=== PATIENT | female | born 1935 | race African-American/Black ===

== ENCOUNTER 2019-07-11 21:55 | Inpatient (IN) | payer OTHER ==
[~2019-07-11] VITALS: Ht 160 cm; Wt 130.7 kg
[2019-07-11] MEDS ORDERED: FUROSEMIDE 100MG/10ML VIAL IVP ONE (22:30)
[2019-07-11 22:53] LABS: BG BASE EXCESS -1.4 mmol/L (-2.0-2.0); BG CARBOXYHEMOGLOBIN 0.3 % (0.5-1.5); BG DEOXYHEMOGLOBIN 59.8 % (0.0-5.0); BG FRACTION INSPIRED OXYGEN 36; BG HCO3 ACT 24.5 mmol/L (22.0-26.0); BG METHEMOGLOBIN 0.3 % (0.0-1.5); BG OXYGEN SATURATION 39.8 % (92.0-98.5); BG OXYHEMOGLOBIN 39.6 % (94.0-97.0); BG PH 7.345 (7.350-7.450); BG PO2 < 30.3 mmHg (75.0-100.0); BG SAMPLE SITE RIGHT RADIAL; BG TOTAL HEMOGLOBIN 12.3 g/dL (12.0-18.0); BG VENT MODE NASAL CANNULA
[2019-07-11 23:13] LABS: BASOPHILS % 0.5 % (0.0-2.0); HEMATOCRIT. 38.4 % (36.0-48.0); HEMOGLOBIN. 12.5 g/dL (12.0-16.0); LYMPHOCYTES % 15.7 % (20.0-50.0); MEAN CORPUSCULAR HEMOGLOBIN 30.7 pg (28.0-32.0); MEAN CORPUSCULAR VOLUME 93.9 fL (81.0-99.0); MEAN PLATELET VOLUME 8.7 fl (7.4-10.4); MONOCYTES % 7.6 % (2.0-8.0); NEUTROPHILS % 75.2 % (40.0-76.0); PLATELET 268 x1000/uL (130-400); RED BLOOD CELL COUNT 4.09 mill/uL (4.2-5.4); RED CELL DISTRIBUTION WIDTH 15.8 % (11.6-14.6)
[2019-07-11 23:19] LABS: CHLORIDE 105 mEq/L (98-107)
[2019-07-12] VITALS (8 sets, daily range): BP systolic 123–156; BP diastolic 53–78
[2019-07-12] MEDS ORDERED: IOHEXOL-350 100 ML BOTTLE ONE (05:17)
[2019-07-12] MEDS ORDERED: IPRATROPIUM/ALBUTEROL 0.5-3(2.5)MG/3ML NEB HHN PRN (10:30)
[2019-07-12] MEDS ORDERED: NPH,100V SQ (10:48)
[2019-07-12 10:50] LABS: BG BASE EXCESS 3.8 mmol/L (-2.0-2.0); BG CARBOXYHEMOGLOBIN 0.1 % (0.5-1.5); BG DEOXYHEMOGLOBIN 7.7 % (0.0-5.0); BG FRACTION INSPIRED OXYGEN 32; BG METHEMOGLOBIN 0.4 % (0.0-1.5); BG OXYGEN SATURATION 92.3 % (92.0-98.5); BG OXYHEMOGLOBIN 91.8 % (94.0-97.0); BG PH 7.453 (7.350-7.450); BG PO2 60.4 mmHg (75.0-100.0); BG SAMPLE SITE RIGHT RADIAL; BG TOTAL HEMOGLOBIN 12.7 g/dL (12.0-18.0); BG VENT MODE NASAL CANNULA
[2019-07-12] MEDS ORDERED: HEPARIN 25,000 UNITS PREMIX 500 ML IV PRN (12:00)
[2019-07-12 13:03] LABS: D-DIMER 8.29 mg/L FEU (<0.50); PROTHROMBIN TIME 10.8 sec (9.6-11.0)
[2019-07-12] MEDS: ENOXAPARIN 150MG/ML SYR SUBCUT SCH ×2 (13:20→21:32)
[2019-07-12] MEDS ORDERED: ONDANSETRON HCL 4MG/2ML INJ IV PRN ×2 (13:30→21:15)
[2019-07-12] MEDS ORDERED: CLONIDINE 0.1MG TABLET PO PRN ×2 (13:30→21:15)
[2019-07-12] MEDS ORDERED: MAGNESIUM/ALUMINUM HYDROXIDE/SIMETHICONE 30ML UDC PO PRN ×2 (13:30→21:15)
[2019-07-12] MEDS ORDERED: IPRATROPIUM/ALBUTEROL 0.5-3(2.5)MG/3ML NEB NEB PRN ×2 (13:30→21:15)
[2019-07-12] MEDS ORDERED: ACETAMINOPHEN 325MG TABLET PO PRN ×2 (13:30→21:15)
[2019-07-12] MEDS ORDERED: DIPHENHYDRAMINE 50MG/ML VIAL IV PRN ×2 (13:30→21:15)
[2019-07-12] MEDS ORDERED: LORAZEPAM 0.5MG TABLET PO PRN (13:30)
[2019-07-12] MEDS: SODIUM CHLORIDE 0.9% INJ 3ML FLUSH IVF SCH ×3 (13:32→21:33)
[2019-07-12] MEDS: IPRATROPIUM/ALBUTEROL 0.5-3(2.5)MG/3ML NEB HHN SCH ×2 (13:47→20:48)
[2019-07-12] MEDS: AMLODIPINE 2.5MG TABLET PO SCH ×2 (15:10→21:31)
[2019-07-12] MEDS ORDERED: DEXTROSE 50% WATER 50ML SYRINGE IV PRN (20:45)
[2019-07-12] MEDS: BUDESONIDE 0.5MG/2ML NEB HHN SCH (20:48)
[2019-07-12] MEDS: BLOOD SUGAR DIAGNOSTIC STRIP TEST SCH (21:32)
[2019-07-12] MEDS: INSULIN LISPRO 100 UNITS/ML SUBCUT SCH (21:47)
[2019-07-13] VITALS (12 sets, daily range): BP systolic 115–170; BP diastolic 44–74
[2019-07-13] MEDS: IPRATROPIUM/ALBUTEROL 0.5-3(2.5)MG/3ML NEB HHN SCH ×3 (01:47→13:50)
[2019-07-13] MEDS: SODIUM CHLORIDE 0.9% INJ 3ML FLUSH IVF SCH ×2 (06:09→13:51)
[2019-07-13 08:14] LABS: BASOPHILS % 0.5 % (0.0-2.0); EOSINOPHILS % 1.4 % (0.0-5.0); HEMATOCRIT. 33.6 % (36.0-48.0); LYMPHOCYTES % 14.6 % (20.0-50.0); MEAN CORPUSCULAR VOLUME 92.1 fL (81.0-99.0); MEAN PLATELET VOLUME 8.8 fl (7.4-10.4); MONOCYTES % 8.2 % (2.0-8.0); NEUTROPHILS % 75.3 % (40.0-76.0); PLATELET 258 x1000/uL (130-400); RED BLOOD CELL COUNT 3.65 mill/uL (4.2-5.4); RED CELL DISTRIBUTION WIDTH 15.1 % (11.6-14.6)
[2019-07-13 08:17] LABS: CREATINE KINASE MB FRACTION 1.3 ng/mL (0.5-3.6)
[2019-07-13] MEDS: INSULIN LISPRO 100 UNITS/ML SUBCUT SCH ×3 (08:28→18:16)
[2019-07-13] MEDS: BLOOD SUGAR DIAGNOSTIC STRIP TEST SCH ×3 (08:28→17:43)
[2019-07-13] MEDS: BUDESONIDE 0.5MG/2ML NEB HHN SCH ×2 (08:40→13:50)
[2019-07-13] MEDS: ENOXAPARIN 150MG/ML SYR SUBCUT SCH (08:40)
[2019-07-13] MEDS: AMLODIPINE 2.5MG TABLET PO SCH (08:44)
[2019-07-13] MEDS ORDERED: POTASSIUM CHLORIDE 20MEQ TABLET SR PO NR (16:00)
== END 2019-07-13 21:05 | disposition short-term general hospital (02) | DRG 175 ==
LOC: ER 21:55 → 5EST 07-12 06:20 → ENRESERV 07-12 08:08
PROVIDERS: ADMIT Internal Medicine; ATTEND Internal Medicine
DX: I26.99 Other pulmonary embolism without acute cor pulmonale (principal); J96.01 Acute respiratory failure with hypoxia; I50.43 Acute on chronic combined systolic (congestive) and diastolic (congestive) heart failure; E46 Unspecified protein-calorie malnutrition; J44.1 Chronic obstructive pulmonary disease with (acute) exacerbation; D68.69 Other thrombophilia; Z68.43 Body mass index [BMI] 50.0-59.9, adult; I11.0 Hypertensive heart disease with heart failure; E87.6 Hypokalemia; E66.01 Morbid (severe) obesity due to excess calories; E11.9 Type 2 diabetes mellitus without complications; D72.829 Elevated white blood cell count, unspecified; E27.8 Other specified disorders of adrenal gland; E87.5 Hyperkalemia; G47.33 Obstructive sleep apnea (adult) (pediatric); N28.9 Disorder of kidney and ureter, unspecified; Z83.3 Family history of diabetes mellitus; Z87.891 Personal history of nicotine dependence; Z79.899 Other long term (current) drug therapy
CPT/HCPCS: 36415; 36600; 71045; 71275; 80048; 80061; 82375; 82550; 82553; 82805; 82962; 83735; 83880; 84443; 84484; 85379; 85384; 87493; 93005; 93306; 93970; J1650; J1815; J1940; J7620; J7626; Q9967

== ENCOUNTER 2019-12-16 05:30 | Emergency (ER) | payer OTHER ==
[~2019-12-16] VITALS: Ht 167.6 cm; Wt 127.0 kg
[~2019-12-16 05:30] MED LIST: NPH,100V SQ
[2019-12-16] MEDS ORDERED: SODIUM CHLORIDE 0.9% 1,000 ML IV ONE (05:55)
[2019-12-16 06:17] LABS: BASOPHILS % 0.5 % (0.0-2.0); HEMATOCRIT. 34.8 % (36.0-48.0); HEMOGLOBIN. 11.6 g/dL (12.0-16.0); LYMPHOCYTES % 19.6 % (20.0-50.0); MEAN CORPUSCULAR HEMOGLOBIN 30.2 pg (28.0-32.0); MEAN PLATELET VOLUME 8.2 fl (7.4-10.4); MONOCYTES % 5.5 % (2.0-8.0); NEUTROPHILS % 72.4 % (40.0-76.0); PLATELET 310 x1000/uL (130-400); RED BLOOD CELL COUNT 3.83 mill/uL (4.2-5.4); RED CELL DISTRIBUTION WIDTH 15.9 % (11.6-14.6)
[2019-12-16 06:23] LABS: CHLORIDE 102 mEq/L (98-107)
[2019-12-16 06:29] LABS: BG BASE EXCESS 1.1 mmol/L (-2.0-2.0); BG CARBOXYHEMOGLOBIN 0.2 % (0.5-1.5); BG DEOXYHEMOGLOBIN 8.9 % (0.0-5.0); BG FRACTION INSPIRED OXYGEN 21; BG HCO3 ACT 26.7 mmol/L (22.0-26.0); BG METHEMOGLOBIN 0.1 % (0.0-1.5); BG OXYGEN SATURATION 91.1 % (92.0-98.5); BG OXYHEMOGLOBIN 90.8 % (94.0-97.0); BG PCO2 46.5 mmHg (35.0-45.0); BG PH 7.377 (7.350-7.450); BG PO2 58.5 mmHg (75.0-100.0); BG SAMPLE SITE RIGHT RADIAL; BG VENT MODE ROOM AIR
[2019-12-16 06:50] LABS: CLARITY URINE TURBID (CLEAR); COLOR URINE YELLOW (YELLOW); KETONES URINE NEGATIVE (NEGATIVE); LEUKOCYTE ESTERASE URINE 3+ (NEGATIVE); NITRITE URINE POSITIVE (NEGATIVE); OCCULT BLOOD URINE TRACE (NEGATIVE); PROTEIN URINE NEGATIVE (NEGATIVE); SPECIFIC GRAVITY URINE 1.011 (1.005-1.030)
[2019-12-16] MEDS ORDERED: CEFTRIAXONE 1 G PREMIX 50 ML IV ONE (07:15)
[2019-12-16] MEDS ORDERED: FUROSEMIDE 40MG/4ML VIAL IVP ONE (07:30)
[2019-12-16 10:25] VITALS: BP 140/75
== END 2019-12-16 11:03 ==
LOC: ER 05:40
DX: I11.0 Hypertensive heart disease with heart failure (principal); I50.9 Heart failure, unspecified; N39.0 Urinary tract infection, site not specified; R09.02 Hypoxemia; R41.82 Altered mental status, unspecified; J44.9 Chronic obstructive pulmonary disease, unspecified; E11.9 Type 2 diabetes mellitus without complications; E78.00 Pure hypercholesterolemia, unspecified; Z79.4 Long term (current) use of insulin
CPT/HCPCS: 36415; 36600; 70450; 71045; 80053; 81003; 82140; 82375; 82805; 82962; 83605; 84484; 85025; 87077; 87086; 87186; 93005; 96361; 96374; 96375; 99285; J0696; J1940; J7030; 96365

== ENCOUNTER 2021-01-01 17:13 | Emergency (ER) | payer OTHER ==
[~2021-01-01] VITALS: Ht 167.6 cm; Wt 95.0 kg
[~2021-01-01 17:13] MED LIST changes: +KEPP250 PO
[2021-01-01 18:21] LABS: BASOPHILS % 0.4 % (0.0-2.0); EOSINOPHILS % 1.7 % (0.0-5.0); HEMATOCRIT. 39.3 % (36.0-48.0); HEMOGLOBIN. 12.4 g/dL (12.0-16.0); LYMPHOCYTES % 22.2 % (20.0-50.0); MEAN CORPUSCULAR HEMOGLOBIN 29.8 pg (28.0-32.0); MEAN CORPUSCULAR VOLUME 94.3 fL (81.0-99.0); MEAN PLATELET VOLUME 8.6 fl (7.4-10.4); MONOCYTES % 7.1 % (2.0-8.0); NEUTROPHILS % 68.6 % (40.0-76.0); PLATELET 288 x1000/uL (130-400); RED BLOOD CELL COUNT 4.17 mill/uL (4.2-5.4)
[2021-01-01 18:29] LABS: CHLORIDE 105 mEq/L (98-107)
[2021-01-01 18:35] LABS: ETHANOL BLOOD < 10 mg/dL
[2021-01-01 20:24] LABS: PROTHROMBIN TIME 10.9 sec (9.6-11.0)
[2021-01-01 20:25] LABS: CLARITY URINE CLEAR (CLEAR); COLOR URINE YELLOW (YELLOW); KETONES URINE NEGATIVE (NEGATIVE); LEUKOCYTE ESTERASE URINE NEGATIVE (NEGATIVE); NITRITE URINE NEGATIVE (NEGATIVE); OCCULT BLOOD URINE NEGATIVE (NEGATIVE); PROTEIN URINE TRACE (NEGATIVE); SPECIFIC GRAVITY URINE 1.008 (1.005-1.030); UROBILINOGEN URINE 0.2 E.U./dL (0.2-1.0)
[2021-01-01 20:33] LABS: *AMPHETAMINES SCREEN URINE NEGATIVE (NEGATIVE)
[2021-01-01 20:34] LABS: *BARBITURATES SCREEN URINE NEGATIVE (NEGATIVE); *BENZODIAZEPINES SCREEN URINE NEGATIVE (NEGATIVE); *COCAINE SCREEN URINE NEGATIVE (NEGATIVE); CANNABINOID URINE SCREEN NEGATIVE (NEGATIVE); METHADONE URINE SCREEN NEGATIVE (NEGATIVE); OPIATES URINE SCREEN NEGATIVE (NEGATIVE); PHENCYCLIDINE URINE SCREEN NEGATIVE (NEGATIVE)
[2021-01-01 21:43] VITALS: BP 107/67
== END 2021-01-01 22:47 | disposition short-term general hospital (02) ==
LOC: ER 17:13
DX: R55 Syncope and collapse (principal); G40.909 Epilepsy, unspecified, not intractable, without status epilepticus
CPT/HCPCS: 36415; 80053; 80305; 80320; 81003; 82962; 84484; 85025; 99284; G0480

== ENCOUNTER 2021-05-27 08:47 | Emergency (ER) | payer OTHER ==
[~2021-05-27] VITALS: Ht 167.6 cm; Wt 136.0 kg
[2021-05-27] MEDS ORDERED: LEVETIRACETAM 1000MG PREMIX 100 ML IV ONE (09:30)
[2021-05-27 09:47] LABS: BASOPHILS % 0.2 % (0.0-2.0); EOSINOPHILS % 0.5 % (0.0-5.0); HEMATOCRIT. 38.8 % (36.0-48.0); HEMOGLOBIN. 12.6 g/dL (12.0-16.0); LYMPHOCYTES % 14.1 % (20.0-50.0); MEAN CORPUSCULAR HEMOGLOBIN 29.9 pg (28.0-32.0); MEAN CORPUSCULAR VOLUME 91.8 fL (81.0-99.0); MEAN PLATELET VOLUME 8.6 fl (7.4-10.4); MONOCYTES % 5.7 % (2.0-8.0); NEUTROPHILS % 79.5 % (40.0-76.0); PLATELET 280 x1000/uL (130-400); RED BLOOD CELL COUNT 4.22 mill/uL (4.2-5.4); RED CELL DISTRIBUTION WIDTH 16.3 % (11.6-14.6)
[2021-05-27 10:13] LABS: CLARITY URINE CLEAR (CLEAR); COLOR URINE YELLOW (YELLOW); KETONES URINE TRACE (NEGATIVE); LEUKOCYTE ESTERASE URINE 2+ (NEGATIVE); NITRITE URINE POSITIVE (NEGATIVE); OCCULT BLOOD URINE TRACE (NEGATIVE); PROTEIN URINE 2+ (NEGATIVE); SPECIFIC GRAVITY URINE 1.011 (1.005-1.030); UROBILINOGEN URINE 0.2 E.U./dL (0.2-1.0)
[2021-05-27] MEDS ORDERED: CEFTRIAXONE 1 G PREMIX 50 ML IV ONE (10:45)
[2021-05-27 10:47] LABS: CHLORIDE 106 mEq/L (98-107)
[2021-05-27] MEDS ORDERED: SODIUM CHLORIDE 0.9% 500 ML IV ONE (11:30)
[2021-05-27] MEDS ORDERED: DIVALPROEX SODIUM 500MG DR TABLET PO ONE (12:15)
[2021-05-27 13:10] VITALS: BP 171/77
== END 2021-05-27 13:58 | disposition short-term general hospital (02) ==
LOC: ER 08:47 → EDBEDREQ 10:37 → ER 13:58 → CANBEDREQ 14:44
DX: R56.9 Unspecified convulsions (principal); N39.0 Urinary tract infection, site not specified; I10 Essential (primary) hypertension; E86.0 Dehydration; Z79.4 Long term (current) use of insulin; Z79.899 Other long term (current) drug therapy
CPT/HCPCS: 36415; 71045; 80053; 80165; 81003; 85025; 87077; 87086; 87186; 93005; 96361; 96365; 96367; 99291; J0696; J1953; J7040

== ENCOUNTER 2021-07-21 05:01 | Inpatient (IN) | payer OTHER ==
[~2021-07-21] VITALS: Ht 167.6 cm; Wt 144.2 kg
[2021-07-21 05:37] LABS: BG BASE EXCESS 1.8 mmol/L (-2.0-2.0); BG CARBOXYHEMOGLOBIN 0.3 % (0.5-1.5); BG DEOXYHEMOGLOBIN 0.9 % (0.0-5.0); BG FRACTION INSPIRED OXYGEN 100; BG HCO3 ACT 27.9 mmol/L (22.0-26.0); BG METHEMOGLOBIN 0.4 % (0.0-1.5); BG OXYGEN SATURATION 99.1 % (92.0-98.5); BG OXYHEMOGLOBIN 98.4 % (94.0-97.0); BG PCO2 50.8 mmHg (35.0-45.0); BG PH 7.358 (7.350-7.450); BG PO2 257.5 mmHg (75.0-100.0); BG SAMPLE SITE RIGHT RADIAL; BG TOTAL HEMOGLOBIN 11.3 g/dL (12.0-18.0); BG VENT MODE MASK - NRB
[2021-07-21 05:57] LABS: BASOPHILS % 0.4 % (0.0-2.0); EOSINOPHILS % 0.7 % (0.0-5.0); HEMATOCRIT. 33.7 % (36.0-48.0); LYMPHOCYTES % 12.3 % (20.0-50.0); MEAN CORPUSCULAR HEMOGLOBIN 29.6 pg (28.0-32.0); MEAN CORPUSCULAR VOLUME 90.9 fL (81.0-99.0); MEAN PLATELET VOLUME 8.1 fl (7.4-10.4); MONOCYTES % 6.5 % (2.0-8.0); NEUTROPHILS % 80.1 % (40.0-76.0); PLATELET 282 x1000/uL (130-400)
[2021-07-21 06:02] LABS: CHLORIDE 103 mEq/L (98-107)
[2021-07-21 06:07] LABS: ETHANOL BLOOD < 10 mg/dL
[2021-07-21 06:30] LABS: CLARITY URINE CLEAR (CLEAR); COLOR URINE YELLOW (YELLOW); KETONES URINE NEGATIVE (NEGATIVE); LEUKOCYTE ESTERASE URINE 2+ (NEGATIVE); NITRITE URINE POSITIVE (NEGATIVE); OCCULT BLOOD URINE NEGATIVE (NEGATIVE); PH URINE 6.5 (4.5-8.0); PROTEIN URINE 1+ (NEGATIVE); UROBILINOGEN URINE 0.2 E.U./dL (0.2-1.0)
[2021-07-21 06:39] LABS: *AMPHETAMINES SCREEN URINE NEGATIVE (NEGATIVE); *BARBITURATES SCREEN URINE NEGATIVE (NEGATIVE)
[2021-07-21 06:41] LABS: *BENZODIAZEPINES SCREEN URINE NEGATIVE (NEGATIVE); *COCAINE SCREEN URINE NEGATIVE (NEGATIVE); METHADONE URINE SCREEN NEGATIVE (NEGATIVE); OPIATES URINE SCREEN NEGATIVE (NEGATIVE)
[2021-07-21 06:42] LABS: CANNABINOID URINE SCREEN NEGATIVE (NEGATIVE); PHENCYCLIDINE URINE SCREEN NEGATIVE (NEGATIVE)
[2021-07-21 06:55] LABS: CARBAMAZEPINE < 0.5 ug/mL (4-12); PHENOBARBITAL < 2.1 ug/mL (15.0-40.0)
[2021-07-21] MEDS ORDERED: CEFTRIAXONE 1 G PREMIX 50 ML IV ONE (08:45)
[2021-07-21] MEDS ORDERED: HYDRALAZINE 20MG/ML VIAL IV ONE (10:00)
[2021-07-21] MEDS ORDERED: LORAZEPAM 2MG/ML CPJ IM STA (10:05)
[2021-07-21] MEDS ORDERED: LEVETIRACETAM 1000MG PREMIX 100 ML IV ONE (10:15)
[2021-07-21] MEDS ORDERED: DOCUSATE SODIUM 100MG CAPSULE PO PRN (11:00)
[2021-07-21] MEDS ORDERED: ACETAMINOPHEN 325MG TABLET PO PRN ×2 (11:00)
[2021-07-21] MEDS ORDERED: IPRATROPIUM/ALBUTEROL 0.5-3(2.5)MG/3ML NEB NEB PRN (11:00)
[2021-07-21] MEDS ORDERED: MAGNESIUM/ALUMINUM HYDROXIDE/SIMETHICONE 30ML UDC PO PRN (11:00)
[2021-07-21] MEDS ORDERED: NITROGLYCERIN 0.4MG TABLET SL SL PRN (11:00)
[2021-07-21] MEDS: AMLODIPINE 10MG TABLET PO SCH (11:00)
[2021-07-21] MEDS ORDERED: ZOLPIDEM TARTRATE 5MG TABLET PO PRN (11:00)
[2021-07-21] MEDS ORDERED: KETOROLAC 15MG/ML VIAL IV PRN (11:00)
[2021-07-21] MEDS ORDERED: LEVOFLOXACIN 500MG PREMIX 100 ML IV NR (12:00)
[2021-07-21 12:10] LABS: T4 FREE 1.18 ng/dL (0.76-1.46)
[2021-07-21] MEDS ORDERED: PHENYTOIN SODIUM 1,000 MG in SODIUM CHLORIDE 0.9% 100 ML IV NR (12:30)
[2021-07-21] MEDS: ENOXAPARIN 30MG/0.3ML SYR SUBCUT SCH ×2 (12:38→23:57)
[2021-07-21 13:27] LABS: CREATINE KINASE MB FRACTION 1.9 ng/mL (0.5-3.6)
[2021-07-21 14:25] LABS: FOLIC ACID (FOLATE) SERUM 16.6 ng/mL (>5.38)
[2021-07-21] MEDS ORDERED: SODIUM CHLORIDE 0.9% 1000ML BAG (SEPSIS BOLUS) IV NR (15:15)
[2021-07-21] MEDS ORDERED: CLONIDINE HCL 0.2MG/24HR PATCH TD NR (15:30)
[2021-07-21] MEDS: NITROGLYCERIN OINT 1GM/INCH UDPKT TD SCH ×2 (17:43→22:23)
[2021-07-21] MEDS: LEVETIRACETAM 500MG PREMIX 100 ML IV SCH (17:45)
[2021-07-21 20:00] VITALS: BP 150/57
[2021-07-21] MEDS ORDERED: VALPROIC ACID 250MG CAPSULE PO SCH (22:00)
[2021-07-21] MEDS: FAMOTIDINE 20MG TABLET PO SCH (22:22)
[2021-07-21] MEDS: ASCORBIC ACID 500 MG TABLET PO SCH (22:22)
[2021-07-21] MEDS: LISINOPRIL 20MG TABLET PO SCH (22:23)
[2021-07-22] VITALS: BP 150/66
[2021-07-22 02:09] LABS: CREATINE KINASE MB FRACTION 2.4 ng/mL (0.5-3.6)
[2021-07-22 04:00] VITALS: BP 148/66
[2021-07-22] MEDS: LEVETIRACETAM 500MG PREMIX 100 ML IV SCH ×2 (05:59→18:55)
[2021-07-22] MEDS: VALPROATE SODIUM 250MG/5ML UDC PO SCH ×3 (06:09→21:55)
[2021-07-22] MEDS: NITROGLYCERIN OINT 1GM/INCH UDPKT TD SCH ×2 (06:10→15:09)
[2021-07-22 07:18] LABS: BASOPHILS % 0.5 % (0.0-2.0); EOSINOPHILS % 0.7 % (0.0-5.0); HEMATOCRIT. 29.7 % (36.0-48.0); HEMOGLOBIN. 9.6 g/dL (12.0-16.0); LYMPHOCYTES % 15.1 % (20.0-50.0); MEAN CORPUSCULAR HEMOGLOBIN 29.5 pg (28.0-32.0); MEAN CORPUSCULAR VOLUME 91.4 fL (81.0-99.0); MEAN PLATELET VOLUME 8.3 fl (7.4-10.4); MONOCYTES % 11.4 % (2.0-8.0); NEUTROPHILS % 72.3 % (40.0-76.0); PLATELET 239 x1000/uL (130-400); RED BLOOD CELL COUNT 3.24 mill/uL (4.2-5.4)
[2021-07-22 08:00] VITALS: BP 142/44
[2021-07-22 08:29] LABS: CHLORIDE 105 mEq/L (98-107)
[2021-07-22 08:40] LABS: PHOSPHORUS 4.4 mg/dL (2.5-4.9)
[2021-07-22] MEDS: ASPIRIN 325MG EC TABLET PO SCH (10:07)
[2021-07-22] MEDS: ZINC SULFATE 220 MG ( 50 ) CAPSULE PO SCH (10:07)
[2021-07-22] MEDS: CHOLECALCIFEROL (D3) 1000 UNIT TABLET PO SCH (10:07)
[2021-07-22] MEDS: AMLODIPINE 10MG TABLET PO SCH (10:08)
[2021-07-22] MEDS: ASCORBIC ACID 500 MG TABLET PO SCH ×2 (10:08→21:51)
[2021-07-22] MEDS: LISINOPRIL 20MG TABLET PO SCH ×2 (10:08→21:50)
[2021-07-22 12:00] VITALS: BP 135/55
[2021-07-22] MEDS: IPRATROPIUM/ALBUTEROL 0.5-3(2.5)MG/3ML NEB HHN SCH ×2 (12:05→20:46)
[2021-07-22] MEDS: BENZONATATE 100MG CAPSULE PO SCH ×2 (15:03→21:51)
[2021-07-22] MEDS: ENOXAPARIN 30MG/0.3ML SYR SUBCUT SCH ×2 (15:05→23:02)
[2021-07-22] MEDS: LEVOFLOXACIN 250MG PREMIX 50 ML IV SCH (15:05)
[2021-07-22 16:00] VITALS: BP 130/60
[2021-07-22 20:00] VITALS: BP 121/51
[2021-07-22] MEDS: PHENYTOIN SODIUM EXTENDED 100MG CAPSULE PO SCH (21:50)
[2021-07-22] MEDS: FAMOTIDINE 20MG TABLET PO SCH (21:51)
[2021-07-22] MEDS: GUAIFENESIN 600MG ER TABLET PO SCH (21:51)
[2021-07-22] MEDS: GUAIFENESIN 200MG/10ML SUGAR FREE UDC PO PRN (23:00)
[2021-07-23] VITALS: BP 119/51
[2021-07-23] MEDS: IPRATROPIUM/ALBUTEROL 0.5-3(2.5)MG/3ML NEB HHN SCH ×4 (00:33→20:48)
[2021-07-23 04:00] VITALS: BP 146/54
[2021-07-23] MEDS: BENZONATATE 100MG CAPSULE PO SCH ×3 (05:23→23:00)
[2021-07-23] MEDS: NITROGLYCERIN OINT 1GM/INCH UDPKT TD SCH ×4 (05:23→23:00)
[2021-07-23] MEDS: VALPROATE SODIUM 250MG/5ML UDC PO SCH ×3 (05:23→23:00)
[2021-07-23] MEDS: LEVETIRACETAM 500MG PREMIX 100 ML IV SCH ×2 (05:24→20:48)
[2021-07-23 08:00] VITALS: BP 130/68
[2021-07-23] MEDS: GUAIFENESIN 200MG/10ML SUGAR FREE UDC PO PRN (10:32)
[2021-07-23] MEDS: ASPIRIN 325MG EC TABLET PO SCH (10:34)
[2021-07-23] MEDS: ZINC SULFATE 220 MG ( 50 ) CAPSULE PO SCH (10:35)
[2021-07-23] MEDS: LISINOPRIL 20MG TABLET PO SCH ×2 (10:35→20:49)
[2021-07-23] MEDS: GUAIFENESIN 600MG ER TABLET PO SCH ×2 (10:35→20:49)
[2021-07-23] MEDS: AMLODIPINE 10MG TABLET PO SCH (10:35)
[2021-07-23] MEDS: CHOLECALCIFEROL (D3) 1000 UNIT TABLET PO SCH (10:35)
[2021-07-23] MEDS: ASCORBIC ACID 500 MG TABLET PO SCH ×2 (10:35→20:48)
[2021-07-23 12:00] VITALS: BP 121/65
[2021-07-23] MEDS: LEVOFLOXACIN 250MG PREMIX 50 ML IV SCH (14:15)
[2021-07-23] MEDS: ENOXAPARIN 30MG/0.3ML SYR SUBCUT SCH ×2 (14:16→23:22)
[2021-07-23] MEDS: FUROSEMIDE 40MG/4ML VIAL IVP SCH (14:47)
[2021-07-23 16:00] VITALS: BP 118/62
[2021-07-23 20:00] VITALS: BP 156/91
[2021-07-23] MEDS: PHENYTOIN SODIUM EXTENDED 100MG CAPSULE PO SCH (20:48)
[2021-07-23] MEDS: MEROPENEM 1,000 MG in SODIUM CHLORIDE 0.9% 100 ML IV SCH (20:48)
[2021-07-23] MEDS: FAMOTIDINE 20MG TABLET PO SCH (20:49)
[2021-07-24] VITALS: BP 181/61
[2021-07-24] MEDS: CLONIDINE 0.1MG TABLET PO PRN (00:44)
[2021-07-24] MEDS: IPRATROPIUM/ALBUTEROL 0.5-3(2.5)MG/3ML NEB HHN SCH ×4 (01:51→20:56)
[2021-07-24 04:00] VITALS: BP 137/44
[2021-07-24] MEDS: NITROGLYCERIN OINT 1GM/INCH UDPKT TD SCH ×3 (07:00→21:00)
[2021-07-24] MEDS: BENZONATATE 100MG CAPSULE PO SCH ×3 (07:00→21:19)
[2021-07-24] MEDS: VALPROATE SODIUM 250MG/5ML UDC PO SCH ×3 (07:00→20:59)
[2021-07-24 08:00] VITALS: BP 159/60
[2021-07-24] MEDS: ASCORBIC ACID 500 MG TABLET PO SCH ×2 (09:35→20:59)
[2021-07-24] MEDS: FUROSEMIDE 40MG/4ML VIAL IVP SCH (09:35)
[2021-07-24] MEDS: MEROPENEM 1,000 MG in SODIUM CHLORIDE 0.9% 100 ML IV SCH ×2 (09:35→20:45)
[2021-07-24] MEDS: ZINC SULFATE 220 MG ( 50 ) CAPSULE PO SCH (09:35)
[2021-07-24] MEDS: LEVETIRACETAM 500MG PREMIX 100 ML IV SCH ×2 (09:35→21:00)
[2021-07-24] MEDS: LISINOPRIL 20MG TABLET PO SCH ×2 (09:36→21:20)
[2021-07-24] MEDS: AMLODIPINE 10MG TABLET PO SCH (09:36)
[2021-07-24] MEDS: CHOLECALCIFEROL (D3) 1000 UNIT TABLET PO SCH (09:36)
[2021-07-24] MEDS: ASPIRIN 325MG EC TABLET PO SCH (09:36)
[2021-07-24] MEDS: GUAIFENESIN 600MG ER TABLET PO SCH ×2 (09:36→20:59)
[2021-07-24 12:00] VITALS: BP 156/68
[2021-07-24] MEDS: ENOXAPARIN 30MG/0.3ML SYR SUBCUT SCH ×2 (12:37→23:08)
[2021-07-24] MEDS: GUAIFENESIN 200MG/10ML SUGAR FREE UDC PO PRN (14:05)
[2021-07-24 16:00] VITALS: BP 158/65
[2021-07-24 20:00] VITALS: BP 118/56
[2021-07-24] MEDS: PHENYTOIN SODIUM EXTENDED 100MG CAPSULE PO SCH (20:59)
[2021-07-24] MEDS: FAMOTIDINE 20MG TABLET PO SCH (21:19)
[2021-07-25] VITALS: BP 131/76
[2021-07-25] MEDS: IPRATROPIUM/ALBUTEROL 0.5-3(2.5)MG/3ML NEB HHN SCH ×4 (01:04→21:20)
[2021-07-25 04:00] VITALS: BP 160/83
[2021-07-25] MEDS: BENZONATATE 100MG CAPSULE PO SCH ×3 (05:16→22:15)
[2021-07-25] MEDS: VALPROATE SODIUM 250MG/5ML UDC PO SCH ×3 (05:16→22:15)
[2021-07-25] MEDS: NITROGLYCERIN OINT 1GM/INCH UDPKT TD SCH ×3 (05:17→22:15)
[2021-07-25] MEDS: CLONIDINE 0.1MG TABLET PO PRN (05:17)
[2021-07-25] MEDS ORDERED: DEXTROSE 50% WATER 50ML SYRINGE IV PRN (07:30)
[2021-07-25 08:00] VITALS: BP 166/64
[2021-07-25] MEDS: ASCORBIC ACID 500 MG TABLET PO SCH ×2 (09:00→22:15)
[2021-07-25] MEDS: ZINC SULFATE 220 MG ( 50 ) CAPSULE PO SCH (09:00)
[2021-07-25] MEDS: FUROSEMIDE 40MG/4ML VIAL IVP SCH (11:08)
[2021-07-25] MEDS: CHOLECALCIFEROL (D3) 1000 UNIT TABLET PO SCH (11:08)
[2021-07-25] MEDS: GUAIFENESIN 600MG ER TABLET PO SCH ×2 (11:08→22:15)
[2021-07-25] MEDS: LEVETIRACETAM 500MG PREMIX 100 ML IV SCH ×2 (11:08→23:51)
[2021-07-25] MEDS: ASPIRIN 325MG EC TABLET PO SCH (11:08)
[2021-07-25] MEDS: AMLODIPINE 10MG TABLET PO SCH (11:09)
[2021-07-25] MEDS: LISINOPRIL 20MG TABLET PO SCH ×2 (11:10→22:16)
[2021-07-25] MEDS: MEROPENEM 1,000 MG in SODIUM CHLORIDE 0.9% 100 ML IV SCH ×3 (11:18→23:24)
[2021-07-25 12:00] VITALS: BP 153/64
[2021-07-25] MEDS: BLOOD SUGAR DIAGNOSTIC STRIP TEST SCH ×3 (12:10→21:00)
[2021-07-25] MEDS: ENOXAPARIN 30MG/0.3ML SYR SUBCUT SCH ×2 (14:09→23:51)
[2021-07-25] MEDS: INSULIN LISPRO 100 UNITS/ML SUBCUT SCH ×3 (14:11→21:00)
[2021-07-25 14:13] LABS: BASOPHILS % 0.2 % (0.0-2.0); CHLORIDE 105 mEq/L (98-107); EOSINOPHILS % 0.3 % (0.0-5.0); HEMATOCRIT. 32.2 % (36.0-48.0); HEMOGLOBIN. 10.2 g/dL (12.0-16.0); LYMPHOCYTES % 14.3 % (20.0-50.0); MEAN CORPUSCULAR HEMOGLOBIN 29.9 pg (28.0-32.0); MEAN PLATELET VOLUME 8.4 fl (7.4-10.4); MONOCYTES % 11.2 % (2.0-8.0); PLATELET 238 x1000/uL (130-400); RED BLOOD CELL COUNT 3.42 mill/uL (4.2-5.4); RED CELL DISTRIBUTION WIDTH 16.6 % (11.6-14.6)
[2021-07-25 16:00] VITALS: BP 158/72
[2021-07-25 20:00] VITALS: BP 143/61
[2021-07-25 20:26] LABS: CHLORIDE 106 mEq/L (98-107)
[2021-07-25] MEDS: PHENYTOIN SODIUM EXTENDED 100MG CAPSULE PO SCH (22:15)
[2021-07-25] MEDS: FAMOTIDINE 20MG TABLET PO SCH (22:20)
[2021-07-26] VITALS (77 sets, daily range): BP systolic 90–199; BP diastolic 26–105
[2021-07-26] MEDS: IPRATROPIUM/ALBUTEROL 0.5-3(2.5)MG/3ML NEB HHN SCH ×4 (01:02→21:14)
[2021-07-26 04:38] LABS: BG BASE EXCESS 0.7 mmol/L (-2.0-2.0); BG CARBOXYHEMOGLOBIN 0.4 % (0.5-1.5); BG DEOXYHEMOGLOBIN 4.3 % (0.0-5.0); BG FRACTION INSPIRED OXYGEN 100; BG HCO3 ACT 31.5 mmol/L (22.0-26.0); BG METHEMOGLOBIN 0.3 % (0.0-1.5); BG OXYGEN SATURATION 95.7 % (92.0-98.5); BG PCO2 91.9 mmHg (35.0-45.0); BG PH 7.153 (7.350-7.450); BG PO2 98.8 mmHg (75.0-100.0); BG SAMPLE SITE RIGHT RADIAL; BG TOTAL HEMOGLOBIN 11.4 g/dL (12.0-18.0); BG VENT MODE MASK - NRB
[2021-07-26] MEDS ORDERED: PHENYLEPHRINE 100 MG in DEXT 5% WATER 240 ML IV PRN (05:00)
[2021-07-26] MEDS: PROPOFOL 10MG/ML 100ML 100 ML IV PRN ×6 (05:24→21:01)
[2021-07-26] MEDS: BENZONATATE 100MG CAPSULE PO SCH ×2 (05:32→13:34)
[2021-07-26] MEDS: VALPROATE SODIUM 250MG/5ML UDC PO SCH ×3 (05:32→22:00)
[2021-07-26] MEDS: NITROGLYCERIN OINT 1GM/INCH UDPKT TD SCH ×3 (05:40→22:57)
[2021-07-26] MEDS: BLOOD SUGAR DIAGNOSTIC STRIP TEST SCH ×3 (06:00→18:13)
[2021-07-26] MEDS ORDERED: INSULIN LISPRO 100 UNITS/ML SUBCUT SCH (06:00)
[2021-07-26] MEDS: INSULIN LISPRO 100 UNITS/ML SUBCUT SCH ×3 (06:10→18:00)
[2021-07-26] MEDS: LEVETIRACETAM 500MG PREMIX 100 ML IV SCH ×2 (08:46→21:52)
[2021-07-26] MEDS: FUROSEMIDE 20MG/2ML VIAL IVP SCH (08:47)
[2021-07-26] MEDS: CHOLECALCIFEROL (D3) 1000 UNIT TABLET PO SCH (08:47)
[2021-07-26] MEDS: ASPIRIN 325MG EC TABLET PO SCH (08:47)
[2021-07-26] MEDS: ZINC SULFATE 220 MG ( 50 ) CAPSULE PO SCH (08:47)
[2021-07-26] MEDS: GUAIFENESIN 600MG ER TABLET PO SCH ×2 (08:47→22:57)
[2021-07-26] MEDS: ASCORBIC ACID 500 MG TABLET PO SCH ×2 (08:47→22:57)
[2021-07-26] MEDS: FENTANYL CITRATE/PF 2,500 MCG in SODIUM CHLORIDE 0.9% 200 ML IV PRN (08:49)
[2021-07-26] MEDS: LISINOPRIL 20MG TABLET PO SCH ×2 (09:00→21:00)
[2021-07-26] MEDS: AMLODIPINE 10MG TABLET PO SCH (09:00)
[2021-07-26 09:19] LABS: BG BASE EXCESS 5.4 mmol/L (-2.0-2.0); BG DEOXYHEMOGLOBIN 0.6 % (0.0-5.0); BG HCO3 ACT 26.6 mmol/L (22.0-26.0); BG METHEMOGLOBIN 0.1 % (0.0-1.5); BG OXYGEN SATURATION 99.4 % (92.0-98.5); BG OXYHEMOGLOBIN 99.3 % (94.0-97.0); BG PCO2 28.2 mmHg (35.0-45.0); BG PH 7.592 (7.350-7.450); BG PO2 303.4 mmHg (75.0-100.0); BG SAMPLE SITE RIGHT RADIAL; BG TOTAL HEMOGLOBIN 11.8 g/dL (12.0-18.0); BG VENT MODE VENT - AC
[2021-07-26] MEDS: MEROPENEM 1,000 MG in SODIUM CHLORIDE 0.9% 100 ML IV SCH ×2 (09:47→20:53)
[2021-07-26 12:54] LABS: BASOPHILS % 0.7 % (0.0-2.0); EOSINOPHILS % 0.4 % (0.0-5.0); HEMATOCRIT. 29.9 % (36.0-48.0); HEMOGLOBIN. 9.7 g/dL (12.0-16.0); LYMPHOCYTES % 19.9 % (20.0-50.0); MEAN CORPUSCULAR VOLUME 92.3 fL (81.0-99.0); MEAN PLATELET VOLUME 8.1 fl (7.4-10.4); MONOCYTES % 10.1 % (2.0-8.0); NEUTROPHILS % 68.9 % (40.0-76.0); PLATELET 241 x1000/uL (130-400); RED BLOOD CELL COUNT 3.24 mill/uL (4.2-5.4); RED CELL DISTRIBUTION WIDTH 16.1 % (11.6-14.6)
[2021-07-26 13:06] LABS: PHOSPHORUS 0.9 mg/dL (2.5-4.9)
[2021-07-26] MEDS: ENOXAPARIN 30MG/0.3ML SYR SUBCUT SCH (13:25)
[2021-07-26] MEDS: CLONIDINE 0.1MG TABLET PO PRN (13:34)
[2021-07-26] MEDS ORDERED: SUCCINYLCHOLINE CHLORIDE 200MG/10ML IV ONE (13:46)
[2021-07-26] MEDS ORDERED: VECURONIUM BROMIDE 10 MG/VIAL IV ONE (13:46)
[2021-07-26] MEDS ORDERED: POTASSIUM PHOS,M-BASIC-D-BASIC 15 MMOL in DEXT 5% WATER 245 ML IV ONE (15:00)
[2021-07-26] MEDS: FAMOTIDINE 20MG TABLET PO SCH (21:00)
[2021-07-26] MEDS: PHENYTOIN SODIUM EXTENDED 100MG CAPSULE PO SCH (22:57)
[2021-07-26] MEDS: ENOXAPARIN 40MG/0.4ML SYR SUBCUT SCH (23:00)
[2021-07-27] VITALS (89 sets, daily range): BP systolic 83–173; BP diastolic 35–78
[2021-07-27] MEDS: INSULIN LISPRO 100 UNITS/ML SUBCUT SCH ×4 (00:45→17:35)
[2021-07-27] MEDS: IPRATROPIUM/ALBUTEROL 0.5-3(2.5)MG/3ML NEB HHN SCH ×4 (01:13→20:25)
[2021-07-27] MEDS: PROPOFOL 10MG/ML 100ML 100 ML IV PRN ×5 (01:53→21:35)
[2021-07-27] MEDS: VALPROATE SODIUM 250MG/5ML UDC PO SCH ×3 (05:59→21:32)
[2021-07-27 06:00] LABS: BASOPHILS % 0.5 % (0.0-2.0); EOSINOPHILS % 1.5 % (0.0-5.0); HEMATOCRIT. 29.5 % (36.0-48.0); HEMOGLOBIN. 9.7 g/dL (12.0-16.0); LYMPHOCYTES % 25.2 % (20.0-50.0); MEAN CORPUSCULAR HEMOGLOBIN 30.1 pg (28.0-32.0); MEAN CORPUSCULAR VOLUME 91.3 fL (81.0-99.0); MEAN PLATELET VOLUME 8.2 fl (7.4-10.4); MONOCYTES % 12.9 % (2.0-8.0); NEUTROPHILS % 59.9 % (40.0-76.0); PLATELET 254 x1000/uL (130-400); RED BLOOD CELL COUNT 3.23 mill/uL (4.2-5.4); RED CELL DISTRIBUTION WIDTH 16.5 % (11.6-14.6)
[2021-07-27] MEDS: NITROGLYCERIN OINT 1GM/INCH UDPKT TD SCH ×3 (06:00→21:33)
[2021-07-27] MEDS: BLOOD SUGAR DIAGNOSTIC STRIP TEST SCH ×4 (06:00→17:33)
[2021-07-27] MEDS: ASPIRIN 325MG EC TABLET PO SCH (08:20)
[2021-07-27] MEDS: ASCORBIC ACID 500 MG TABLET PO SCH ×2 (08:21→21:32)
[2021-07-27] MEDS: GUAIFENESIN 600MG ER TABLET PO SCH ×2 (08:21→21:30)
[2021-07-27] MEDS: CHOLECALCIFEROL (D3) 1000 UNIT TABLET PO SCH (08:22)
[2021-07-27] MEDS: ZINC SULFATE 220 MG ( 50 ) CAPSULE PO SCH (08:22)
[2021-07-27] MEDS: FUROSEMIDE 20MG/2ML VIAL IVP SCH (08:22)
[2021-07-27] MEDS: ENOXAPARIN 40MG/0.4ML SYR SUBCUT SCH (08:23)
[2021-07-27] MEDS: MEROPENEM 1,000 MG in SODIUM CHLORIDE 0.9% 100 ML IV SCH ×2 (08:23→21:29)
[2021-07-27] MEDS: LISINOPRIL 20MG TABLET PO SCH ×2 (08:25→21:00)
[2021-07-27] MEDS: AMLODIPINE 10MG TABLET PO SCH (08:25)
[2021-07-27] MEDS ORDERED: POTASSIUM CHLORIDE 20MEQ TABLET SR PO NR (09:45)
[2021-07-27] MEDS: LEVETIRACETAM 500MG PREMIX 100 ML IV SCH ×2 (09:52→21:29)
[2021-07-27 12:26] LABS: BG BASE EXCESS 9.8 mmol/L (-2.0-2.0); BG CARBOXYHEMOGLOBIN 0.3 % (0.5-1.5); BG DEOXYHEMOGLOBIN 1.1 % (0.0-5.0); BG FRACTION INSPIRED OXYGEN 50; BG HCO3 ACT 32.5 mmol/L (22.0-26.0); BG METHEMOGLOBIN 0.3 % (0.0-1.5); BG OXYGEN SATURATION 98.9 % (92.0-98.5); BG OXYHEMOGLOBIN 98.3 % (94.0-97.0); BG PH 7.562 (7.350-7.450); BG PO2 147.1 mmHg (75.0-100.0); BG SAMPLE SITE RIGHT RADIAL; BG TOTAL HEMOGLOBIN 11.4 g/dL (12.0-18.0); BG VENT MODE VENT - AC
[2021-07-27] MEDS ORDERED: FUROSEMIDE 20MG/2ML VIAL IVP NR (12:45)
[2021-07-27] MEDS: FENTANYL CITRATE/PF 2,500 MCG in SODIUM CHLORIDE 0.9% 200 ML IV PRN (16:44)
[2021-07-27] MEDS: FAMOTIDINE 20MG TABLET PO SCH (21:30)
[2021-07-27] MEDS: ENOXAPARIN 30MG/0.3ML SYR SUBCUT SCH (21:36)
[2021-07-27] MEDS: PHENYTOIN SODIUM EXTENDED 100MG CAPSULE PO SCH (22:41)
[2021-07-28] VITALS (89 sets, daily range): BP systolic 88–175; BP diastolic 34–107
[2021-07-28] MEDS: IPRATROPIUM/ALBUTEROL 0.5-3(2.5)MG/3ML NEB HHN SCH ×4 (02:14→21:11)
[2021-07-28] MEDS: NITROGLYCERIN OINT 1GM/INCH UDPKT TD SCH ×3 (06:00→22:05)
[2021-07-28] MEDS: INSULIN LISPRO 100 UNITS/ML SUBCUT SCH ×5 (06:00→23:24)
[2021-07-28] MEDS: BLOOD SUGAR DIAGNOSTIC STRIP TEST SCH ×4 (06:39→18:20)
[2021-07-28] MEDS: VALPROATE SODIUM 250MG/5ML UDC PO SCH ×3 (07:04→22:06)
[2021-07-28 07:47] LABS: BG BASE EXCESS 8.5 mmol/L (-2.0-2.0); BG CARBOXYHEMOGLOBIN 0.3 % (0.5-1.5); BG DEOXYHEMOGLOBIN 1.3 % (0.0-5.0); BG HCO3 ACT 30.8 mmol/L (22.0-26.0); BG METHEMOGLOBIN 0.2 % (0.0-1.5); BG OXYGEN SATURATION 98.7 % (92.0-98.5); BG OXYHEMOGLOBIN 98.2 % (94.0-97.0); BG PCO2 33.8 mmHg (35.0-45.0); BG PH 7.577 (7.350-7.450); BG PO2 146.4 mmHg (75.0-100.0); BG SAMPLE SITE RIGHT RADIAL; BG TOTAL HEMOGLOBIN 10.6 g/dL (12.0-18.0); BG VENT MODE VENT - AC
[2021-07-28] MEDS: MEROPENEM 1,000 MG in SODIUM CHLORIDE 0.9% 100 ML IV SCH ×2 (08:38→22:03)
[2021-07-28] MEDS: LEVETIRACETAM 500MG PREMIX 100 ML IV SCH ×2 (08:38→22:03)
[2021-07-28] MEDS: CHOLECALCIFEROL (D3) 1000 UNIT TABLET PO SCH (08:39)
[2021-07-28] MEDS: ASCORBIC ACID 500 MG TABLET PO SCH ×2 (08:39→22:06)
[2021-07-28] MEDS: ASPIRIN 325MG EC TABLET PO SCH (08:39)
[2021-07-28] MEDS: GUAIFENESIN 600MG ER TABLET PO SCH ×2 (08:39→22:04)
[2021-07-28] MEDS: AMLODIPINE 10MG TABLET PO SCH (08:39)
[2021-07-28] MEDS: ZINC SULFATE 220 MG ( 50 ) CAPSULE PO SCH (08:39)
[2021-07-28] MEDS: LISINOPRIL 20MG TABLET PO SCH ×2 (08:40→22:05)
[2021-07-28] MEDS: ENOXAPARIN 30MG/0.3ML SYR SUBCUT SCH ×2 (08:42→22:05)
[2021-07-28] MEDS: FUROSEMIDE 20MG/2ML VIAL IVP SCH (08:42)
[2021-07-28] MEDS ORDERED: FUROSEMIDE 20MG/2ML VIAL IVP NR (10:30)
[2021-07-28 11:00] LABS: BG BASE EXCESS 7.8 mmol/L (-2.0-2.0); BG CARBOXYHEMOGLOBIN 0.3 % (0.5-1.5); BG DEOXYHEMOGLOBIN 3.2 % (0.0-5.0); BG FRACTION INSPIRED OXYGEN 40; BG HCO3 ACT 35.3 mmol/L (22.0-26.0); BG METHEMOGLOBIN 0.3 % (0.0-1.5); BG OXYGEN SATURATION 96.8 % (92.0-98.5); BG OXYHEMOGLOBIN 96.2 % (94.0-97.0); BG PCO2 65.5 mmHg (35.0-45.0); BG PH 7.349 (7.350-7.450); BG PO2 102.3 mmHg (75.0-100.0); BG SAMPLE SITE RIGHT RADIAL; BG TOTAL HEMOGLOBIN 11.4 g/dL (12.0-18.0); BG VENT MODE VENT - CPAP
[2021-07-28 13:27] LABS: BG BASE EXCESS 7.6 mmol/L (-2.0-2.0); BG CARBOXYHEMOGLOBIN 0.3 % (0.5-1.5); BG DEOXYHEMOGLOBIN 2.5 % (0.0-5.0); BG FRACTION INSPIRED OXYGEN 40; BG HCO3 ACT 34.3 mmol/L (22.0-26.0); BG METHEMOGLOBIN 0.2 % (0.0-1.5); BG OXYGEN SATURATION 97.5 % (92.0-98.5); BG PCO2 59.4 mmHg (35.0-45.0); BG PH 7.379 (7.350-7.450); BG PO2 110.5 mmHg (75.0-100.0); BG SAMPLE SITE RIGHT RADIAL; BG TOTAL HEMOGLOBIN 11.3 g/dL (12.0-18.0); BG VENT MODE VENT - CPAP
[2021-07-28] MEDS ORDERED: LORAZEPAM 2MG/ML CPJ IV PRN (16:45)
[2021-07-28] MEDS: METHYLPREDNISOLONE SOD SUCC 125 MG/2 ML VIAL IV SCH (17:38)
[2021-07-28] MEDS: FAMOTIDINE 20MG TABLET PO SCH (21:00)
[2021-07-28] MEDS: GUAIFENESIN 200MG/10ML SUGAR FREE UDC PO PRN (22:08)
[2021-07-28] MEDS: ONDANSETRON HCL 4MG/2ML INJ IV PRN (22:08)
[2021-07-28] MEDS: PHENYTOIN SODIUM EXTENDED 100MG CAPSULE PO SCH (22:56)
[2021-07-29] VITALS (73 sets, daily range): BP systolic 94–169; BP diastolic 36–95
[2021-07-29] MEDS: IPRATROPIUM/ALBUTEROL 0.5-3(2.5)MG/3ML NEB HHN SCH ×4 (00:53→21:11)
[2021-07-29] MEDS: FENTANYL CITRATE/PF 2,500 MCG in SODIUM CHLORIDE 0.9% 200 ML IV PRN (04:22)
[2021-07-29] MEDS: VALPROATE SODIUM 250MG/5ML UDC PO SCH ×3 (05:56→22:14)
[2021-07-29] MEDS: METHYLPREDNISOLONE SOD SUCC 125 MG/2 ML VIAL IV SCH ×5 (05:56→23:42)
[2021-07-29] MEDS: INSULIN LISPRO 100 UNITS/ML SUBCUT SCH ×4 (05:57→23:47)
[2021-07-29] MEDS: NITROGLYCERIN OINT 1GM/INCH UDPKT TD SCH ×3 (05:58→22:15)
[2021-07-29] MEDS: BLOOD SUGAR DIAGNOSTIC STRIP TEST SCH ×5 (05:58→23:35)
[2021-07-29] MEDS ORDERED: RACEPINEPHRINE 2.25% 0.5ML NEB VIAL HHN NR (09:00)
[2021-07-29] MEDS: FUROSEMIDE 20MG/2ML VIAL IVP SCH (09:23)
[2021-07-29] MEDS: GUAIFENESIN 600MG ER TABLET PO SCH ×2 (09:24→20:53)
[2021-07-29] MEDS: ASPIRIN 325MG EC TABLET PO SCH (09:24)
[2021-07-29] MEDS: ZINC SULFATE 220 MG ( 50 ) CAPSULE PO SCH (09:24)
[2021-07-29] MEDS: LISINOPRIL 20MG TABLET PO SCH ×2 (09:24→20:54)
[2021-07-29] MEDS: AMLODIPINE 10MG TABLET PO SCH (09:24)
[2021-07-29] MEDS: ASCORBIC ACID 500 MG TABLET PO SCH ×2 (09:24→20:52)
[2021-07-29] MEDS: CHOLECALCIFEROL (D3) 1000 UNIT TABLET PO SCH (09:24)
[2021-07-29] MEDS: LEVETIRACETAM 500MG PREMIX 100 ML IV SCH ×2 (09:25→20:51)
[2021-07-29] MEDS ORDERED: RACEPINEPHRINE 2.25% 0.5ML NEB VIAL HHN PRN (11:00)
[2021-07-29 18:30] LABS: BASOPHILS % 0.1 % (0.0-2.0); HEMATOCRIT. 31.9 % (36.0-48.0); HEMOGLOBIN. 10.2 g/dL (12.0-16.0); LYMPHOCYTES % 8.2 % (20.0-50.0); MEAN CORPUSCULAR HEMOGLOBIN 29.4 pg (28.0-32.0); MEAN CORPUSCULAR VOLUME 92.2 fL (81.0-99.0); MEAN PLATELET VOLUME 8.3 fl (7.4-10.4); MONOCYTES % 4.7 % (2.0-8.0); PLATELET 300 x1000/uL (130-400); RED BLOOD CELL COUNT 3.46 mill/uL (4.2-5.4); RED CELL DISTRIBUTION WIDTH 16.4 % (11.6-14.6)
[2021-07-29] MEDS: ENOXAPARIN 30MG/0.3ML SYR SUBCUT SCH (18:34)
[2021-07-29] MEDS: FAMOTIDINE 20MG TABLET PO SCH (20:52)
[2021-07-29] MEDS: PHENYTOIN 100 MG/4 ML UDC PO SCH (22:33)
[2021-07-30] VITALS (49 sets, daily range): BP systolic 69–144; BP diastolic 15–72
[2021-07-30] MEDS: IPRATROPIUM/ALBUTEROL 0.5-3(2.5)MG/3ML NEB HHN SCH ×4 (00:11→20:17)
[2021-07-30] MEDS: VALPROATE SODIUM 250MG/5ML UDC PO SCH ×3 (05:37→21:54)
[2021-07-30] MEDS: METHYLPREDNISOLONE SOD SUCC 125 MG/2 ML VIAL IV SCH (05:38)
[2021-07-30] MEDS: NITROGLYCERIN OINT 1GM/INCH UDPKT TD SCH ×3 (05:38→21:53)
[2021-07-30] MEDS: BLOOD SUGAR DIAGNOSTIC STRIP TEST SCH ×4 (05:38→23:36)
[2021-07-30] MEDS: INSULIN LISPRO 100 UNITS/ML SUBCUT SCH ×4 (06:31→23:59)
[2021-07-30] MEDS: ENOXAPARIN 30MG/0.3ML SYR SUBCUT SCH ×2 (07:19→17:12)
[2021-07-30] MEDS: GUAIFENESIN 600MG ER TABLET PO SCH ×2 (09:00→20:53)
[2021-07-30] MEDS: ASPIRIN 325MG EC TABLET PO SCH (09:00)
[2021-07-30 09:24] LABS: BG BASE EXCESS 7.1 mmol/L (-2.0-2.0); BG CARBOXYHEMOGLOBIN 0.3 % (0.5-1.5); BG DEOXYHEMOGLOBIN 3.2 % (0.0-5.0); BG HCO3 ACT 34.8 mmol/L (22.0-26.0); BG METHEMOGLOBIN 0.2 % (0.0-1.5); BG OXYGEN SATURATION 96.8 % (92.0-98.5); BG OXYHEMOGLOBIN 96.3 % (94.0-97.0); BG PCO2 67.2 mmHg (35.0-45.0); BG PH 7.332 (7.350-7.450); BG PO2 98.9 mmHg (75.0-100.0); BG SAMPLE SITE RIGHT BRACHIAL; BG TOTAL HEMOGLOBIN 10.9 g/dL (12.0-18.0); BG VENT MODE NASAL CANNULA
[2021-07-30] MEDS: FUROSEMIDE 20MG/2ML VIAL IVP SCH (09:31)
[2021-07-30] MEDS: ASCORBIC ACID 500 MG TABLET PO SCH ×2 (09:31→20:53)
[2021-07-30] MEDS: CHOLECALCIFEROL (D3) 1000 UNIT TABLET PO SCH (09:31)
[2021-07-30] MEDS: LISINOPRIL 20MG TABLET PO SCH ×2 (09:31→20:54)
[2021-07-30] MEDS: AMLODIPINE 10MG TABLET PO SCH (09:32)
[2021-07-30] MEDS: ZINC SULFATE 220 MG ( 50 ) CAPSULE PO SCH (09:32)
[2021-07-30] MEDS: LEVETIRACETAM 500MG PREMIX 100 ML IV SCH ×2 (09:33→20:52)
[2021-07-30] MEDS: METHYLPREDNISOLONE SOD SUCC 40 MG/ML VIAL IV SCH ×2 (14:08→22:11)
[2021-07-30] MEDS: ACETYLCYSTEINE 100MG/ML 10% VIAL 4ML INH SCH ×2 (16:05→20:17)
[2021-07-30] MEDS: PHENYTOIN 100 MG/4 ML UDC PO SCH (20:52)
[2021-07-30] MEDS: FAMOTIDINE 20MG TABLET PO SCH (20:53)
[2021-07-31] VITALS (50 sets, daily range): BP systolic 70–182; BP diastolic 22–141
[2021-07-31] MEDS: IPRATROPIUM/ALBUTEROL 0.5-3(2.5)MG/3ML NEB HHN SCH ×6 (00:55→21:14)
[2021-07-31] MEDS: ENOXAPARIN 30MG/0.3ML SYR SUBCUT SCH ×2 (06:01→18:36)
[2021-07-31] MEDS: NITROGLYCERIN OINT 1GM/INCH UDPKT TD SCH ×3 (06:01→21:49)
[2021-07-31] MEDS: VALPROATE SODIUM 250MG/5ML UDC PO SCH ×3 (06:01→21:01)
[2021-07-31] MEDS: BLOOD SUGAR DIAGNOSTIC STRIP TEST SCH ×3 (06:01→18:36)
[2021-07-31] MEDS: METHYLPREDNISOLONE SOD SUCC 40 MG/ML VIAL IV SCH (06:01)
[2021-07-31] MEDS: INSULIN LISPRO 100 UNITS/ML SUBCUT SCH ×3 (06:38→18:38)
[2021-07-31 07:12] LABS: BG BASE EXCESS 6.1 mmol/L (-2.0-2.0); BG CARBOXYHEMOGLOBIN 0.3 % (0.5-1.5); BG DEOXYHEMOGLOBIN 3.6 % (0.0-5.0); BG HCO3 ACT 32.6 mmol/L (22.0-26.0); BG METHEMOGLOBIN 0.2 % (0.0-1.5); BG OXYGEN SATURATION 96.4 % (92.0-98.5); BG OXYHEMOGLOBIN 95.9 % (94.0-97.0); BG PH 7.368 (7.350-7.450); BG PO2 91.9 mmHg (75.0-100.0); BG SAMPLE SITE RIGHT BRACHIAL; BG TOTAL HEMOGLOBIN 10.3 g/dL (12.0-18.0); BG VENT MODE MASK - BIPAP
[2021-07-31] MEDS: LEVETIRACETAM 500MG PREMIX 100 ML IV SCH ×2 (09:03→21:45)
[2021-07-31] MEDS: FUROSEMIDE 20MG/2ML VIAL IVP SCH (09:03)
[2021-07-31] MEDS: ACETYLCYSTEINE 100MG/ML 10% VIAL 4ML INH SCH ×3 (09:09→21:14)
[2021-07-31] MEDS: ASCORBIC ACID 500 MG TABLET PO SCH ×2 (09:11→20:53)
[2021-07-31] MEDS: GUAIFENESIN 600MG ER TABLET PO SCH ×2 (09:12→20:53)
[2021-07-31] MEDS: ASPIRIN 325MG EC TABLET PO SCH (09:12)
[2021-07-31] MEDS: ZINC SULFATE 220 MG ( 50 ) CAPSULE PO SCH (09:12)
[2021-07-31] MEDS: AMLODIPINE 10MG TABLET PO SCH (09:13)
[2021-07-31] MEDS: CHOLECALCIFEROL (D3) 1000 UNIT TABLET PO SCH (09:13)
[2021-07-31] MEDS: LISINOPRIL 20MG TABLET PO SCH ×2 (09:13→20:53)
[2021-07-31] MEDS: CLONIDINE 0.1MG TABLET PO PRN (12:18)
[2021-07-31] MEDS: FAMOTIDINE 20MG TABLET PO SCH (20:53)
[2021-07-31] MEDS: PHENYTOIN 100 MG/4 ML UDC PO SCH (21:48)
[2021-08-01] VITALS (12 sets, daily range): BP systolic 101–170; BP diastolic 30–76
[2021-08-01] MEDS: CLONIDINE 0.1MG TABLET PO PRN (00:10)
[2021-08-01] MEDS: BLOOD SUGAR DIAGNOSTIC STRIP TEST SCH ×4 (00:10→17:52)
[2021-08-01] MEDS: IPRATROPIUM/ALBUTEROL 0.5-3(2.5)MG/3ML NEB HHN SCH ×6 (00:31→20:32)
[2021-08-01] MEDS: INSULIN LISPRO 100 UNITS/ML SUBCUT SCH ×4 (00:42→18:01)
[2021-08-01] MEDS: VALPROATE SODIUM 250MG/5ML UDC PO SCH ×3 (05:43→20:52)
[2021-08-01] MEDS: NITROGLYCERIN OINT 1GM/INCH UDPKT TD SCH ×3 (05:43→20:56)
[2021-08-01] MEDS: ENOXAPARIN 30MG/0.3ML SYR SUBCUT SCH ×2 (05:44→18:01)
[2021-08-01] MEDS: GUAIFENESIN 600MG ER TABLET PO SCH ×2 (08:53→20:52)
[2021-08-01] MEDS: ASCORBIC ACID 500 MG TABLET PO SCH ×2 (08:53→20:52)
[2021-08-01] MEDS: ZINC SULFATE 220 MG ( 50 ) CAPSULE PO SCH (08:54)
[2021-08-01] MEDS: CHOLECALCIFEROL (D3) 1000 UNIT TABLET PO SCH (08:54)
[2021-08-01] MEDS: AMLODIPINE 10MG TABLET PO SCH (08:54)
[2021-08-01] MEDS: LISINOPRIL 20MG TABLET PO SCH ×2 (08:54→20:55)
[2021-08-01] MEDS: ASPIRIN 325MG EC TABLET PO SCH (08:54)
[2021-08-01] MEDS: FUROSEMIDE 20MG/2ML VIAL IVP SCH (08:54)
[2021-08-01] MEDS: LEVETIRACETAM 500MG PREMIX 100 ML IV SCH (08:56)
[2021-08-01] MEDS: ACETYLCYSTEINE 100MG/ML 10% VIAL 4ML INH SCH ×2 (10:15→17:25)
[2021-08-01] MEDS: MEROPENEM 1,000 MG in SODIUM CHLORIDE 0.9% 100 ML IV SCH ×2 (14:02→20:51)
[2021-08-01 16:44] LABS: CLARITY URINE CLEAR (CLEAR); COLOR URINE YELLOW (YELLOW); KETONES URINE NEGATIVE (NEGATIVE); LEUKOCYTE ESTERASE URINE 3+ (NEGATIVE); NITRITE URINE NEGATIVE (NEGATIVE); OCCULT BLOOD URINE NEGATIVE (NEGATIVE); PROTEIN URINE TRACE (NEGATIVE); SPECIFIC GRAVITY URINE 1.014 (1.005-1.030); UROBILINOGEN URINE 0.2 E.U./dL (0.2-1.0)
[2021-08-01] MEDS: PHENYTOIN 100 MG/4 ML UDC PO SCH (20:51)
[2021-08-01] MEDS: LEVETIRACETAM 500MG/5ML CUP PO SCH (20:52)
[2021-08-01] MEDS: FAMOTIDINE 20MG TABLET PO SCH (20:55)
[2021-08-02] VITALS (12 sets, daily range): BP systolic 120–165; BP diastolic 45–74
[2021-08-02] MEDS: IPRATROPIUM/ALBUTEROL 0.5-3(2.5)MG/3ML NEB HHN SCH ×6 (00:08→22:15)
[2021-08-02] MEDS: ACETYLCYSTEINE 100MG/ML 10% VIAL 4ML INH SCH ×3 (00:09→16:13)
[2021-08-02] MEDS: INSULIN LISPRO 100 UNITS/ML SUBCUT SCH ×4 (00:28→17:07)
[2021-08-02] MEDS: BLOOD SUGAR DIAGNOSTIC STRIP TEST SCH ×4 (00:28→17:01)
[2021-08-02] MEDS: ENOXAPARIN 30MG/0.3ML SYR SUBCUT SCH ×2 (04:57→17:07)
[2021-08-02] MEDS: MEROPENEM 1,000 MG in SODIUM CHLORIDE 0.9% 100 ML IV SCH ×3 (04:57→21:23)
[2021-08-02] MEDS: VALPROATE SODIUM 250MG/5ML UDC PO SCH ×3 (05:00→21:23)
[2021-08-02] MEDS: NITROGLYCERIN OINT 1GM/INCH UDPKT TD SCH ×3 (05:00→21:25)
[2021-08-02 06:46] LABS: CHLORIDE 110 mEq/L (98-107)
[2021-08-02 06:49] LABS: BASOPHILS % 0.4 % (0.0-2.0); EOSINOPHILS % 2.5 % (0.0-5.0); HEMATOCRIT. 29.6 % (36.0-48.0); HEMOGLOBIN. 9.6 g/dL (12.0-16.0); LYMPHOCYTES % 15.4 % (20.0-50.0); MEAN CORPUSCULAR HEMOGLOBIN 30.2 pg (28.0-32.0); MEAN CORPUSCULAR VOLUME 93.3 fL (81.0-99.0); MEAN PLATELET VOLUME 8.2 fl (7.4-10.4); MONOCYTES % 13.7 % (2.0-8.0); PLATELET 282 x1000/uL (130-400); RED BLOOD CELL COUNT 3.17 mill/uL (4.2-5.4); RED CELL DISTRIBUTION WIDTH 16.5 % (11.6-14.6)
[2021-08-02] MEDS: LISINOPRIL 20MG TABLET PO SCH ×2 (08:55→21:25)
[2021-08-02] MEDS: AMLODIPINE 10MG TABLET PO SCH (08:56)
[2021-08-02] MEDS: ZINC SULFATE 220 MG ( 50 ) CAPSULE PO SCH (08:56)
[2021-08-02] MEDS: CHOLECALCIFEROL (D3) 1000 UNIT TABLET PO SCH (08:56)
[2021-08-02] MEDS: FUROSEMIDE 20MG/2ML VIAL IVP SCH (08:56)
[2021-08-02] MEDS: ASCORBIC ACID 500 MG TABLET PO SCH ×2 (08:57→21:23)
[2021-08-02] MEDS: LEVETIRACETAM 500MG/5ML CUP PO SCH ×2 (08:57→21:23)
[2021-08-02] MEDS: ASPIRIN 325MG EC TABLET PO SCH (09:01)
[2021-08-02] MEDS: GUAIFENESIN 600MG ER TABLET PO SCH (09:01)
[2021-08-02] MEDS: CLONIDINE 0.1MG TABLET PO PRN (11:32)
[2021-08-02] MEDS: PHENYTOIN 100 MG/4 ML UDC PO SCH (21:23)
[2021-08-02] MEDS: FAMOTIDINE 20MG TABLET PO SCH (21:23)
[2021-08-03] VITALS (12 sets, daily range): BP systolic 122–158; BP diastolic 32–84
[2021-08-03] MEDS: BLOOD SUGAR DIAGNOSTIC STRIP TEST SCH ×5 (00:18→23:53)
[2021-08-03] MEDS: CLONIDINE 0.1MG TABLET PO PRN (00:18)
[2021-08-03] MEDS: INSULIN LISPRO 100 UNITS/ML SUBCUT SCH ×4 (00:18→18:13)
[2021-08-03] MEDS: IPRATROPIUM/ALBUTEROL 0.5-3(2.5)MG/3ML NEB HHN SCH ×6 (02:05→21:53)
[2021-08-03] MEDS: ACETYLCYSTEINE 100MG/ML 10% VIAL 4ML INH SCH ×3 (02:05→17:08)
[2021-08-03] MEDS: VALPROATE SODIUM 250MG/5ML UDC PO SCH ×3 (05:19→21:14)
[2021-08-03] MEDS: MEROPENEM 1,000 MG in SODIUM CHLORIDE 0.9% 100 ML IV SCH ×3 (05:19→21:14)
[2021-08-03] MEDS: ENOXAPARIN 30MG/0.3ML SYR SUBCUT SCH ×2 (05:19→17:36)
[2021-08-03] MEDS: NITROGLYCERIN OINT 1GM/INCH UDPKT TD SCH ×3 (05:21→21:16)
[2021-08-03] MEDS: LISINOPRIL 20MG TABLET PO SCH ×2 (09:41→21:16)
[2021-08-03] MEDS: ASCORBIC ACID 500 MG TABLET PO SCH ×2 (09:41→21:14)
[2021-08-03] MEDS: LEVETIRACETAM 500MG/5ML CUP PO SCH ×2 (09:41→21:14)
[2021-08-03] MEDS: AMLODIPINE 10MG TABLET PO SCH (09:41)
[2021-08-03] MEDS: CHOLECALCIFEROL (D3) 1000 UNIT TABLET PO SCH (09:41)
[2021-08-03] MEDS: ZINC SULFATE 220 MG ( 50 ) CAPSULE PO SCH (09:41)
[2021-08-03] MEDS: ASPIRIN 325MG EC TABLET PO SCH (09:41)
[2021-08-03] MEDS: FUROSEMIDE 20MG/2ML VIAL IVP SCH (09:41)
[2021-08-03] MEDS: FAMOTIDINE 20MG TABLET PO SCH (21:14)
[2021-08-03] MEDS: PHENYTOIN 100 MG/4 ML UDC PO SCH (21:14)
[2021-08-04] VITALS (12 sets, daily range): BP systolic 97–149; BP diastolic 33–90
[2021-08-04] MEDS: INSULIN LISPRO 100 UNITS/ML SUBCUT SCH ×5 (00:33→23:13)
[2021-08-04] MEDS: ALBUTEROL (0.083%) 2.5MG/3ML NEB HHN SCH ×2 (01:27→21:27)
[2021-08-04] MEDS: IPRATROPIUM/ALBUTEROL 0.5-3(2.5)MG/3ML NEB HHN SCH ×4 (03:40→12:45)
[2021-08-04] MEDS: ACETYLCYSTEINE 100MG/ML 10% VIAL 4ML INH SCH ×2 (03:40→09:52)
[2021-08-04] MEDS: MEROPENEM 1,000 MG in SODIUM CHLORIDE 0.9% 100 ML IV SCH ×3 (04:39→21:19)
[2021-08-04] MEDS: BLOOD SUGAR DIAGNOSTIC STRIP TEST SCH ×4 (05:09→23:12)
[2021-08-04] MEDS: VALPROATE SODIUM 250MG/5ML UDC PO SCH ×3 (05:32→23:12)
[2021-08-04] MEDS: NITROGLYCERIN OINT 1GM/INCH UDPKT TD SCH ×3 (05:32→23:12)
[2021-08-04] MEDS: ENOXAPARIN 30MG/0.3ML SYR SUBCUT SCH ×2 (05:33→17:55)
[2021-08-04] MEDS: AMLODIPINE 10MG TABLET PO SCH (10:02)
[2021-08-04] MEDS: ASCORBIC ACID 500 MG TABLET PO SCH ×2 (10:02→21:19)
[2021-08-04] MEDS: FUROSEMIDE 20MG/2ML VIAL IVP SCH (10:02)
[2021-08-04] MEDS: ASPIRIN 325MG EC TABLET PO SCH (10:02)
[2021-08-04] MEDS: CHOLECALCIFEROL (D3) 1000 UNIT TABLET PO SCH (10:02)
[2021-08-04] MEDS: LEVETIRACETAM 500MG/5ML CUP PO SCH (10:02)
[2021-08-04] MEDS: ZINC SULFATE 220 MG ( 50 ) CAPSULE PO SCH (10:02)
[2021-08-04] MEDS: LISINOPRIL 20MG TABLET PO SCH ×2 (10:03→21:19)
[2021-08-04] MEDS ORDERED: INSULIN LISPRO 100 UNITS/ML SUBCUT SCH (13:30)
[2021-08-04 13:48] LABS: BG BASE EXCESS 15.5 mmol/L (-2.0-2.0); BG CARBOXYHEMOGLOBIN 0.1 % (0.5-1.5); BG DEOXYHEMOGLOBIN 1.4 % (0.0-5.0); BG FRACTION INSPIRED OXYGEN 40; BG HCO3 ACT 44.7 mmol/L (22.0-26.0); BG METHEMOGLOBIN 0.3 % (0.0-1.5); BG OXYGEN SATURATION 98.6 % (92.0-98.5); BG OXYHEMOGLOBIN 98.2 % (94.0-97.0); BG PCO2 88.7 mmHg (35.0-45.0); BG PO2 146.1 mmHg (75.0-100.0); BG TOTAL HEMOGLOBIN 10.2 g/dL (12.0-18.0); BG VENT MODE COOL AEROSOL
[2021-08-04 17:11] LABS: BASOPHILS % 0.4 % (0.0-2.0); EOSINOPHILS % 1.8 % (0.0-5.0); HEMATOCRIT. 29.2 % (36.0-48.0); HEMOGLOBIN. 9.3 g/dL (12.0-16.0); LYMPHOCYTES % 14.4 % (20.0-50.0); MEAN CORPUSCULAR HEMOGLOBIN 30.2 pg (28.0-32.0); MEAN CORPUSCULAR VOLUME 95.1 fL (81.0-99.0); MEAN PLATELET VOLUME 8.9 fl (7.4-10.4); MONOCYTES % 10.7 % (2.0-8.0); NEUTROPHILS % 72.7 % (40.0-76.0); PLATELET 276 x1000/uL (130-400); RED BLOOD CELL COUNT 3.07 mill/uL (4.2-5.4); RED CELL DISTRIBUTION WIDTH 16.5 % (11.6-14.6)
[2021-08-04] MEDS: FAMOTIDINE 20MG TABLET PO SCH (21:19)
[2021-08-04] MEDS: PHENYTOIN 100 MG/4 ML UDC NG SCH (21:19)
[2021-08-04] MEDS: LEVETIRACETAM 250MG TABLET PO SCH (21:20)
[2021-08-05] VITALS (12 sets, daily range): BP systolic 113–169; BP diastolic 47–96
[2021-08-05] MEDS: MEROPENEM 1,000 MG in SODIUM CHLORIDE 0.9% 100 ML IV SCH ×3 (04:47→20:06)
[2021-08-05] MEDS: ALBUTEROL (0.083%) 2.5MG/3ML NEB HHN SCH ×4 (05:05→21:39)
[2021-08-05] MEDS: INSULIN LISPRO 100 UNITS/ML SUBCUT SCH ×3 (06:00→18:35)
[2021-08-05] MEDS: ENOXAPARIN 30MG/0.3ML SYR SUBCUT SCH ×2 (06:00→18:35)
[2021-08-05] MEDS: BLOOD SUGAR DIAGNOSTIC STRIP TEST SCH ×3 (06:19→18:28)
[2021-08-05] MEDS: NITROGLYCERIN OINT 1GM/INCH UDPKT TD SCH ×3 (06:22→22:05)
[2021-08-05] MEDS: VALPROATE SODIUM 250MG/5ML UDC PO SCH ×3 (06:22→22:05)
[2021-08-05 07:31] LABS: BASOPHILS % 0.4 % (0.0-2.0); EOSINOPHILS % 1.7 % (0.0-5.0); HEMATOCRIT. 32.9 % (36.0-48.0); HEMOGLOBIN. 10.3 g/dL (12.0-16.0); LYMPHOCYTES % 15.4 % (20.0-50.0); MEAN CORPUSCULAR HEMOGLOBIN 30.1 pg (28.0-32.0); MEAN CORPUSCULAR VOLUME 96.1 fL (81.0-99.0); MEAN PLATELET VOLUME 9.1 fl (7.4-10.4); MONOCYTES % 9.5 % (2.0-8.0); PLATELET 269 x1000/uL (130-400); RED BLOOD CELL COUNT 3.43 mill/uL (4.2-5.4)
[2021-08-05 07:36] LABS: PROTHROMBIN TIME 10.3 sec (9.6-11.0)
[2021-08-05] MEDS: ASCORBIC ACID 500 MG TABLET PO SCH ×2 (08:24→20:06)
[2021-08-05] MEDS: CHOLECALCIFEROL (D3) 1000 UNIT TABLET PO SCH (08:24)
[2021-08-05] MEDS: ZINC SULFATE 220 MG ( 50 ) CAPSULE PO SCH (08:24)
[2021-08-05] MEDS: ASPIRIN 325MG EC TABLET PO SCH (08:25)
[2021-08-05] MEDS: AMLODIPINE 10MG TABLET PO SCH (09:28)
[2021-08-05] MEDS: LEVETIRACETAM 250MG TABLET PO SCH ×2 (09:29→20:06)
[2021-08-05] MEDS: LISINOPRIL 20MG TABLET PO SCH ×2 (09:29→20:07)
[2021-08-05] MEDS: FUROSEMIDE 20MG/2ML VIAL IVP SCH (09:29)
[2021-08-05] MEDS ORDERED: SODIUM POLYSTYRENE SULFONATE 15 G/60 ML BOT PO NR (09:30)
[2021-08-05 13:53] LABS: BG BASE EXCESS 16.5 mmol/L (-2.0-2.0); BG CARBOXYHEMOGLOBIN 0.2 % (0.5-1.5); BG DEOXYHEMOGLOBIN 0.9 % (0.0-5.0); BG FRACTION INSPIRED OXYGEN 36; BG HCO3 ACT 46.2 mmol/L (22.0-26.0); BG METHEMOGLOBIN 0.3 % (0.0-1.5); BG OXYGEN SATURATION 99.1 % (92.0-98.5); BG OXYHEMOGLOBIN 98.6 % (94.0-97.0); BG PCO2 96.1 mmHg (35.0-45.0); BG PO2 214.4 mmHg (75.0-100.0); BG SAMPLE SITE RIGHT RADIAL; BG TOTAL HEMOGLOBIN 10.2 g/dL (12.0-18.0); BG VENT MODE NASAL CANNULA
[2021-08-05] MEDS: INSULIN GLARGINE UD 100 UNITS/ML SYR SUBCUT SCH (15:45)
[2021-08-05] MEDS: PHENYTOIN 100 MG/4 ML UDC NG SCH (20:06)
[2021-08-05] MEDS: FAMOTIDINE 20MG TABLET PO SCH (20:11)
[2021-08-06] VITALS (52 sets, daily range): BP systolic 56–200; BP diastolic 31–80
[2021-08-06] MEDS: BLOOD SUGAR DIAGNOSTIC STRIP TEST SCH ×5 (00:34→23:11)
[2021-08-06] MEDS: INSULIN LISPRO 100 UNITS/ML SUBCUT SCH ×5 (00:35→23:12)
[2021-08-06] MEDS: CLONIDINE 0.1MG TABLET PO PRN ×2 (00:38→05:56)
[2021-08-06] MEDS: ALBUTEROL (0.083%) 2.5MG/3ML NEB HHN SCH ×5 (01:18→16:47)
[2021-08-06] MEDS ORDERED: PROPOFOL 10MG/ML 100ML 100 ML IV PRN (02:15)
[2021-08-06] MEDS ORDERED: NOREPINEPHRINE 8 MG in DEXT 5% WATER 242 ML IV PRN (02:30)
[2021-08-06 03:01] LABS: BG BASE EXCESS 10.5 mmol/L (-2.0-2.0); BG CARBOXYHEMOGLOBIN 0.3 % (0.5-1.5); BG DEOXYHEMOGLOBIN 0.7 % (0.0-5.0); BG FRACTION INSPIRED OXYGEN 100; BG HCO3 ACT 36.6 mmol/L (22.0-26.0); BG METHEMOGLOBIN 0.2 % (0.0-1.5); BG OXYGEN SATURATION 99.3 % (92.0-98.5); BG OXYHEMOGLOBIN 98.8 % (94.0-97.0); BG PCO2 57.4 mmHg (35.0-45.0); BG PH 7.422 (7.350-7.450); BG PO2 287.1 mmHg (75.0-100.0); BG SAMPLE SITE RIGHT RADIAL; BG TOTAL HEMOGLOBIN 10.1 g/dL (12.0-18.0); BG VENT MODE VENT - AC
[2021-08-06] MEDS: MEROPENEM 1,000 MG in SODIUM CHLORIDE 0.9% 100 ML IV SCH ×2 (05:17→12:41)
[2021-08-06] MEDS: NITROGLYCERIN OINT 1GM/INCH UDPKT TD SCH ×3 (05:18→23:11)
[2021-08-06] MEDS: ENOXAPARIN 30MG/0.3ML SYR SUBCUT SCH ×2 (05:18→18:41)
[2021-08-06] MEDS: VALPROATE SODIUM 250MG/5ML UDC PO SCH ×3 (05:18→23:11)
[2021-08-06 06:05] LABS: BASOPHILS % 0.1 % (0.0-2.0); EOSINOPHILS % 0.6 % (0.0-5.0); HEMATOCRIT. 32.4 % (36.0-48.0); LYMPHOCYTES % 11.1 % (20.0-50.0); MEAN CORPUSCULAR HEMOGLOBIN 29.4 pg (28.0-32.0); MEAN CORPUSCULAR VOLUME 95.3 fL (81.0-99.0); MEAN PLATELET VOLUME 8.7 fl (7.4-10.4); MONOCYTES % 8.3 % (2.0-8.0); NEUTROPHILS % 79.9 % (40.0-76.0); PLATELET 281 x1000/uL (130-400); RED BLOOD CELL COUNT 3.39 mill/uL (4.2-5.4); RED CELL DISTRIBUTION WIDTH 16.6 % (11.6-14.6)
[2021-08-06] MEDS ORDERED: CALCIUM CHLORIDE 1GM/10ML SYR IV ONE (08:13)
[2021-08-06] MEDS ORDERED: SUCCINYLCHOLINE CHLORIDE 200MG/10ML IV ONE (08:13)
[2021-08-06] MEDS ORDERED: EPINEPHRINE 0.1MG/ML (1:10,000) 10ML SYR ONE (08:13)
[2021-08-06 09:36] LABS: BG BASE EXCESS 15.4 mmol/L (-2.0-2.0); BG CARBOXYHEMOGLOBIN 0.2 % (0.5-1.5); BG FRACTION INSPIRED OXYGEN 60; BG HCO3 ACT 39.9 mmol/L (22.0-26.0); BG METHEMOGLOBIN 0.2 % (0.0-1.5); BG OXYHEMOGLOBIN 98.6 % (94.0-97.0); BG PCO2 49.1 mmHg (35.0-45.0); BG PH 7.528 (7.350-7.450); BG PO2 145.5 mmHg (75.0-100.0); BG SAMPLE SITE RIGHT RADIAL; BG TOTAL HEMOGLOBIN 10.4 g/dL (12.0-18.0); BG VENT MODE VENT - AC
[2021-08-06] MEDS: FUROSEMIDE 20MG/2ML VIAL IVP SCH (09:59)
[2021-08-06] MEDS: ZINC SULFATE 220 MG ( 50 ) CAPSULE PO SCH (09:59)
[2021-08-06] MEDS: ASCORBIC ACID 500 MG TABLET PO SCH ×2 (09:59→20:39)
[2021-08-06] MEDS: CHOLECALCIFEROL (D3) 1000 UNIT TABLET PO SCH (09:59)
[2021-08-06] MEDS: LEVETIRACETAM 250MG TABLET PO SCH ×2 (10:00→20:39)
[2021-08-06] MEDS: LISINOPRIL 20MG TABLET PO SCH ×2 (10:00→20:39)
[2021-08-06] MEDS: AMLODIPINE 10MG TABLET PO SCH (10:00)
[2021-08-06] MEDS: ASPIRIN 325MG EC TABLET PO SCH (10:00)
[2021-08-06] MEDS ORDERED: AMLODIPINE 5MG TABLET PO SCH (10:00)
[2021-08-06] MEDS: DEXT 5%/0.45% NACL 1000ML 1,000 ML IV SCH (10:03)
[2021-08-06] MEDS: INSULIN GLARGINE UD 100 UNITS/ML SYR SUBCUT SCH (10:03)
[2021-08-06] MEDS: IPRATROPIUM/ALBUTEROL 0.5-3(2.5)MG/3ML NEB HHN PRN (20:17)
[2021-08-06] MEDS: PHENYTOIN 100 MG/4 ML UDC NG SCH (20:38)
[2021-08-06] MEDS: FAMOTIDINE 20MG TABLET PO SCH (20:39)
[2021-08-07] VITALS (48 sets, daily range): BP systolic 105–164; BP diastolic 34–100
[2021-08-07] MEDS: ALBUTEROL (0.083%) 2.5MG/3ML NEB HHN SCH ×5 (00:45→20:13)
[2021-08-07 04:59] LABS: BASOPHILS % 0.4 % (0.0-2.0); EOSINOPHILS % 0.9 % (0.0-5.0); HEMATOCRIT. 28.7 % (36.0-48.0); HEMOGLOBIN. 9.1 g/dL (12.0-16.0); LYMPHOCYTES % 14.9 % (20.0-50.0); MEAN CORPUSCULAR HEMOGLOBIN 29.4 pg (28.0-32.0); MEAN CORPUSCULAR VOLUME 92.4 fL (81.0-99.0); MEAN PLATELET VOLUME 8.9 fl (7.4-10.4); MONOCYTES % 8.7 % (2.0-8.0); NEUTROPHILS % 75.1 % (40.0-76.0); PLATELET 262 x1000/uL (130-400); RED BLOOD CELL COUNT 3.11 mill/uL (4.2-5.4); RED CELL DISTRIBUTION WIDTH 16.4 % (11.6-14.6)
[2021-08-07] MEDS: BLOOD SUGAR DIAGNOSTIC STRIP TEST SCH ×3 (05:07→17:48)
[2021-08-07] MEDS: VALPROATE SODIUM 250MG/5ML UDC PO SCH ×3 (05:12→21:59)
[2021-08-07] MEDS: INSULIN LISPRO 100 UNITS/ML SUBCUT SCH ×3 (05:13→18:25)
[2021-08-07] MEDS: ENOXAPARIN 30MG/0.3ML SYR SUBCUT SCH (05:13)
[2021-08-07] MEDS: NITROGLYCERIN OINT 1GM/INCH UDPKT TD SCH ×3 (05:13→21:59)
[2021-08-07 08:37] LABS: BG BASE EXCESS 11.6 mmol/L (-2.0-2.0); BG CARBOXYHEMOGLOBIN 0.2 % (0.5-1.5); BG DEOXYHEMOGLOBIN 2.9 % (0.0-5.0); BG FRACTION INSPIRED OXYGEN 40; BG HCO3 ACT 36.1 mmol/L (22.0-26.0); BG METHEMOGLOBIN 1.5 % (0.0-1.5); BG OXYHEMOGLOBIN 95.4 % (94.0-97.0); BG PH 7.503 (7.350-7.450); BG SAMPLE SITE RIGHT RADIAL; BG TOTAL HEMOGLOBIN 10.3 g/dL (12.0-18.0); BG VENT MODE VENT - AC
[2021-08-07] MEDS: FUROSEMIDE 20MG/2ML VIAL IVP SCH (09:34)
[2021-08-07] MEDS: LEVETIRACETAM 250MG TABLET PO SCH (09:34)
[2021-08-07] MEDS: LISINOPRIL 20MG TABLET PO SCH ×2 (09:35→21:58)
[2021-08-07] MEDS: ZINC SULFATE 220 MG ( 50 ) CAPSULE PO SCH (09:35)
[2021-08-07] MEDS: ASCORBIC ACID 500 MG TABLET PO SCH ×2 (09:35→21:58)
[2021-08-07] MEDS: CHOLECALCIFEROL (D3) 1000 UNIT TABLET PO SCH (09:35)
[2021-08-07] MEDS: ASPIRIN 325MG EC TABLET PO SCH (09:35)
[2021-08-07] MEDS: AMLODIPINE 10MG TABLET PO SCH (09:35)
[2021-08-07] MEDS: INSULIN GLARGINE UD 100 UNITS/ML SYR SUBCUT SCH (09:36)
[2021-08-07] MEDS: DEXT 5%/0.45% NACL 1000ML 1,000 ML IV SCH (09:36)
[2021-08-07] MEDS: FAMOTIDINE 20MG TABLET PO SCH (21:57)
[2021-08-07] MEDS: PHENYTOIN 100 MG/4 ML UDC NG SCH (21:57)
[2021-08-08] VITALS (43 sets, daily range): BP systolic 99–144; BP diastolic 30–72
[2021-08-08] MEDS: DEXT 5%/0.45% NACL 1000ML 1,000 ML IV SCH ×2 (00:09→20:41)
[2021-08-08] MEDS: BLOOD SUGAR DIAGNOSTIC STRIP TEST SCH ×4 (00:09→17:27)
[2021-08-08] MEDS: ALBUTEROL (0.083%) 2.5MG/3ML NEB HHN SCH ×6 (00:29→20:08)
[2021-08-08] MEDS: INSULIN LISPRO 100 UNITS/ML SUBCUT SCH ×5 (00:40→23:45)
[2021-08-08 05:52] LABS: BASOPHILS % 0.4 % (0.0-2.0); EOSINOPHILS % 1.5 % (0.0-5.0); HEMATOCRIT. 23.5 % (36.0-48.0); HEMOGLOBIN. 7.5 g/dL (12.0-16.0); LYMPHOCYTES % 17.3 % (20.0-50.0); MEAN CORPUSCULAR HEMOGLOBIN 29.9 pg (28.0-32.0); MEAN CORPUSCULAR VOLUME 93.3 fL (81.0-99.0); MEAN PLATELET VOLUME 9.5 fl (7.4-10.4); NEUTROPHILS % 72.8 % (40.0-76.0); PLATELET 212 x1000/uL (130-400); RED BLOOD CELL COUNT 2.52 mill/uL (4.2-5.4); RED CELL DISTRIBUTION WIDTH 16.6 % (11.6-14.6)
[2021-08-08] MEDS: VALPROATE SODIUM 250MG/5ML UDC PO SCH ×3 (06:14→22:23)
[2021-08-08] MEDS: NITROGLYCERIN OINT 1GM/INCH UDPKT TD SCH ×3 (06:16→22:00)
[2021-08-08] MEDS: AMLODIPINE 10MG TABLET PO SCH (09:39)
[2021-08-08] MEDS: FUROSEMIDE 20MG/2ML VIAL IVP SCH (09:39)
[2021-08-08] MEDS: LEVETIRACETAM 250MG TABLET PO SCH (09:39)
[2021-08-08] MEDS: ASPIRIN 325MG EC TABLET PO SCH (09:39)
[2021-08-08] MEDS: ASCORBIC ACID 500 MG TABLET PO SCH ×2 (09:40→20:56)
[2021-08-08] MEDS: LISINOPRIL 20MG TABLET PO SCH ×2 (09:40→20:57)
[2021-08-08] MEDS: ZINC SULFATE 220 MG ( 50 ) CAPSULE PO SCH (09:40)
[2021-08-08] MEDS: CHOLECALCIFEROL (D3) 1000 UNIT TABLET PO SCH (09:40)
[2021-08-08] MEDS: INSULIN GLARGINE UD 100 UNITS/ML SYR SUBCUT SCH (10:08)
[2021-08-08 13:18] LABS: HEMATOCRIT 22.6 % (36.0-48.0); HEMOGLOBIN 7.3 g/dL (12.0-16.0)
[2021-08-08] MEDS: FAMOTIDINE 20MG TABLET PO SCH (20:56)
[2021-08-08] MEDS: PHENYTOIN 100 MG/4 ML UDC NG SCH (20:57)
[2021-08-09] VITALS (76 sets, daily range): BP systolic 84–128; BP diastolic 26–65
[2021-08-09] MEDS: BLOOD SUGAR DIAGNOSTIC STRIP TEST SCH ×4 (00:01→17:21)
[2021-08-09] MEDS: ALBUTEROL (0.083%) 2.5MG/3ML NEB HHN SCH ×4 (04:11→20:32)
[2021-08-09] MEDS: NITROGLYCERIN OINT 1GM/INCH UDPKT TD SCH ×3 (06:00→21:13)
[2021-08-09 06:15] LABS: BASOPHILS % 0.4 % (0.0-2.0); EOSINOPHILS % 2.5 % (0.0-5.0); LYMPHOCYTES % 18.3 % (20.0-50.0); MEAN CORPUSCULAR HEMOGLOBIN 29.9 pg (28.0-32.0); MEAN CORPUSCULAR VOLUME 93.9 fL (81.0-99.0); MEAN PLATELET VOLUME 9.7 fl (7.4-10.4); MONOCYTES % 8.4 % (2.0-8.0); NEUTROPHILS % 70.4 % (40.0-76.0); PLATELET 196 x1000/uL (130-400); RED BLOOD CELL COUNT 2.21 mill/uL (4.2-5.4)
[2021-08-09] MEDS: VALPROATE SODIUM 250MG/5ML UDC PO SCH ×3 (06:53→21:13)
[2021-08-09] MEDS: DEXT 5%/0.45% NACL 1000ML 1,000 ML IV SCH ×2 (06:55→20:34)
[2021-08-09] MEDS: INSULIN LISPRO 100 UNITS/ML SUBCUT SCH ×3 (06:57→17:22)
[2021-08-09 07:19] LABS: HEMATOCRIT. 20.7 % (36.0-48.0); HEMOGLOBIN. 6.6 g/dL (12.0-16.0)
[2021-08-09] MEDS: ASPIRIN 325MG EC TABLET PO SCH (08:35)
[2021-08-09] MEDS: FUROSEMIDE 20MG/2ML VIAL IVP SCH (08:36)
[2021-08-09] MEDS: LEVETIRACETAM 250MG TABLET PO SCH (08:38)
[2021-08-09] MEDS: CHOLECALCIFEROL (D3) 1000 UNIT TABLET PO SCH (08:38)
[2021-08-09] MEDS: ASCORBIC ACID 500 MG TABLET PO SCH ×2 (08:38→20:30)
[2021-08-09] MEDS: LISINOPRIL 20MG TABLET PO SCH ×2 (08:39→20:26)
[2021-08-09] MEDS: AMLODIPINE 10MG TABLET PO SCH (08:39)
[2021-08-09] MEDS: ZINC SULFATE 220 MG ( 50 ) CAPSULE PO SCH (08:41)
[2021-08-09 09:06] LABS: BG FRACTION INSPIRED OXYGEN 40; BG HCO3 ACT 30.1 mmol/L (22.0-26.0); BG METHEMOGLOBIN 0.2 % (0.0-1.5); BG OXYHEMOGLOBIN 96.8 % (94.0-97.0); BG PCO2 41.8 mmHg (35.0-45.0); BG PH 7.475 (7.350-7.450); BG SAMPLE SITE LEFT BRACHIAL; BG TOTAL HEMOGLOBIN 7.4 g/dL (12.0-18.0); BG TOTAL RESPIRATORY RATE 14 b/min; BG VENT MODE VENT - AC
[2021-08-09] MEDS: INSULIN GLARGINE UD 100 UNITS/ML SYR SUBCUT SCH (09:51)
[2021-08-09] MEDS ORDERED: POLYETHYLENE GLYCOL 3350 (17GM) 1 DOSE PACK NG NR (10:45)
[2021-08-09] MEDS ORDERED: DOCUSATE SODIUM 100MG CAPSULE NG SCH (10:45)
[2021-08-09] MEDS ORDERED: DOCUSATE SODIUM SUGAR FREE 100MG/10ML UDC NG PRN (11:30)
[2021-08-09] MEDS: DOCUSATE SODIUM SUGAR FREE 100MG/10ML UDC NG SCH ×2 (11:33→17:22)
[2021-08-09] MEDS: IPRATROPIUM/ALBUTEROL 0.5-3(2.5)MG/3ML NEB HHN PRN (15:43)
[2021-08-09 16:36] LABS: HEMATOCRIT 25.5 % (36.0-48.0); HEMOGLOBIN 8.2 g/dL (12.0-16.0)
[2021-08-09] MEDS: PHENYTOIN 100 MG/4 ML UDC NG SCH (20:30)
[2021-08-09] MEDS: FAMOTIDINE 20MG TABLET PO SCH (20:30)
[2021-08-10] VITALS (47 sets, daily range): BP systolic 89–132; BP diastolic 28–63
[2021-08-10] MEDS: BLOOD SUGAR DIAGNOSTIC STRIP TEST SCH ×5 (00:02→23:50)
[2021-08-10] MEDS: INSULIN LISPRO 100 UNITS/ML SUBCUT SCH ×5 (00:03→23:53)
[2021-08-10] MEDS: ALBUTEROL (0.083%) 2.5MG/3ML NEB HHN SCH ×6 (00:40→20:22)
[2021-08-10] MEDS: NITROGLYCERIN OINT 1GM/INCH UDPKT TD SCH ×3 (05:14→21:43)
[2021-08-10] MEDS: VALPROATE SODIUM 250MG/5ML UDC PO SCH ×3 (05:35→22:07)
[2021-08-10 06:01] LABS: HEMATOCRIT. 25.7 % (36.0-48.0); HEMOGLOBIN. 8.1 g/dL (12.0-16.0); MEAN CORPUSCULAR HEMOGLOBIN 29.5 pg (28.0-32.0); MEAN CORPUSCULAR VOLUME 92.9 fL (81.0-99.0); MEAN PLATELET VOLUME 10.9 fl (7.4-10.4); PLATELET 150 x1000/uL (130-400); RED BLOOD CELL COUNT 2.76 mill/uL (4.2-5.4); RED CELL DISTRIBUTION WIDTH 17.6 % (11.6-14.6)
[2021-08-10] MEDS: AMLODIPINE 10MG TABLET PO SCH (08:34)
[2021-08-10] MEDS: DOCUSATE SODIUM SUGAR FREE 100MG/10ML UDC NG SCH ×2 (08:34→16:50)
[2021-08-10] MEDS: ASPIRIN 325MG EC TABLET PO SCH (08:34)
[2021-08-10] MEDS: ZINC SULFATE 220 MG ( 50 ) CAPSULE PO SCH (08:35)
[2021-08-10] MEDS: DEXT 5%/0.45% NACL 1000ML 1,000 ML IV SCH ×2 (08:35→20:17)
[2021-08-10] MEDS: ASCORBIC ACID 500 MG TABLET PO SCH ×2 (08:35→20:16)
[2021-08-10] MEDS: LISINOPRIL 20MG TABLET PO SCH ×2 (08:35→20:17)
[2021-08-10] MEDS: CHOLECALCIFEROL (D3) 1000 UNIT TABLET PO SCH (08:35)
[2021-08-10] MEDS: FUROSEMIDE 20MG/2ML VIAL IVP SCH (08:35)
[2021-08-10 09:13] LABS: CLARITY URINE TURBID (CLEAR); COLOR URINE YELLOW (YELLOW); KETONES URINE NEGATIVE (NEGATIVE); LEUKOCYTE ESTERASE URINE 3+ (NEGATIVE); NITRITE URINE NEGATIVE (NEGATIVE); OCCULT BLOOD URINE 3+ (NEGATIVE); PROTEIN URINE 2+ (NEGATIVE); SPECIFIC GRAVITY URINE 1.014 (1.005-1.030); UROBILINOGEN URINE 0.2 E.U./dL (0.2-1.0)
[2021-08-10] MEDS: INSULIN GLARGINE UD 100 UNITS/ML SYR SUBCUT SCH (10:31)
[2021-08-10] MEDS ORDERED: MEROPENEM 500 MG in SODIUM CHLORIDE 0.9% 50 ML IV SCH (14:30)
[2021-08-10] MEDS: MEROPENEM 1000MG in NORMAL SALINE 100ML IV SCH (15:24)
[2021-08-10] MEDS: FAMOTIDINE 20MG TABLET PO SCH (20:16)
[2021-08-10 21:17] LABS: PLATELET ESTIMATE NORMAL
[2021-08-11] VITALS (48 sets, daily range): BP systolic 91–124; BP diastolic 33–54
[2021-08-11] MEDS: ALBUTEROL (0.083%) 2.5MG/3ML NEB HHN SCH ×6 (00:14→20:13)
[2021-08-11] MEDS: MEROPENEM 1000MG in NORMAL SALINE 100ML IV SCH ×2 (03:13→15:27)
[2021-08-11 05:54] LABS: BASOPHILS % 0.3 % (0.0-2.0); EOSINOPHILS % 2.4 % (0.0-5.0); HEMATOCRIT. 24.6 % (36.0-48.0); MEAN CORPUSCULAR HEMOGLOBIN 30.4 pg (28.0-32.0); MEAN CORPUSCULAR VOLUME 93.2 fL (81.0-99.0); MEAN PLATELET VOLUME 10.2 fl (7.4-10.4); MONOCYTES % 6.9 % (2.0-8.0); NEUTROPHILS % 81.4 % (40.0-76.0); PLATELET 192 x1000/uL (130-400); RED BLOOD CELL COUNT 2.64 mill/uL (4.2-5.4); RED CELL DISTRIBUTION WIDTH 16.5 % (11.6-14.6)
[2021-08-11] MEDS: NITROGLYCERIN OINT 1GM/INCH UDPKT TD SCH ×3 (06:00→21:28)
[2021-08-11] MEDS: BLOOD SUGAR DIAGNOSTIC STRIP TEST SCH ×4 (06:06→23:03)
[2021-08-11] MEDS: VALPROATE SODIUM 250MG/5ML UDC PO SCH ×3 (06:10→21:31)
[2021-08-11] MEDS: INSULIN LISPRO 100 UNITS/ML SUBCUT SCH ×4 (06:11→23:06)
[2021-08-11 08:15] LABS: BG BASE EXCESS 4.8 mmol/L (-2.0-2.0); BG CARBOXYHEMOGLOBIN 0.3 % (0.5-1.5); BG DEOXYHEMOGLOBIN 12.1 % (0.0-5.0); BG HCO3 ACT 30.4 mmol/L (22.0-26.0); BG METHEMOGLOBIN 0.3 % (0.0-1.5); BG OXYGEN SATURATION 87.8 % (92.0-98.5); BG OXYHEMOGLOBIN 87.3 % (94.0-97.0); BG PCO2 51.1 mmHg (35.0-45.0); BG PH 7.392 (7.350-7.450); BG PO2 54.8 mmHg (75.0-100.0); BG SAMPLE SITE RIGHT RADIAL; BG TOTAL HEMOGLOBIN 8.7 g/dL (12.0-18.0); BG VENT MODE VENT - AC
[2021-08-11] MEDS: ZINC SULFATE 220 MG ( 50 ) CAPSULE PO SCH (08:16)
[2021-08-11] MEDS: CHOLECALCIFEROL (D3) 1000 UNIT TABLET PO SCH (08:16)
[2021-08-11] MEDS: ASCORBIC ACID 500 MG TABLET PO SCH ×2 (08:16→21:31)
[2021-08-11] MEDS: FUROSEMIDE 20MG/2ML VIAL IVP SCH (08:17)
[2021-08-11] MEDS: ASPIRIN 325MG EC TABLET PO SCH (08:18)
[2021-08-11] MEDS: LISINOPRIL 20MG TABLET PO SCH ×2 (08:18→21:00)
[2021-08-11] MEDS: AMLODIPINE 10MG TABLET PO SCH (08:18)
[2021-08-11] MEDS: DOCUSATE SODIUM SUGAR FREE 100MG/10ML UDC NG SCH ×2 (08:32→16:17)
[2021-08-11] MEDS: DEXT 5%/0.45% NACL 1000ML 1,000 ML IV SCH ×2 (08:32→21:31)
[2021-08-11] MEDS: INSULIN GLARGINE UD 100 UNITS/ML SYR SUBCUT SCH (09:53)
[2021-08-11] MEDS: IPRATROPIUM/ALBUTEROL 0.5-3(2.5)MG/3ML NEB HHN PRN (20:13)
[2021-08-11] MEDS: FAMOTIDINE 20MG TABLET PO SCH (21:31)
[2021-08-12] VITALS (55 sets, daily range): BP systolic 109–163; BP diastolic 37–86
[2021-08-12] MEDS: ALBUTEROL (0.083%) 2.5MG/3ML NEB HHN SCH ×5 (00:37→16:19)
[2021-08-12] MEDS: MEROPENEM 1000MG in NORMAL SALINE 100ML IV SCH ×2 (03:28→16:07)
[2021-08-12] MEDS: VALPROATE SODIUM 250MG/5ML UDC PO SCH ×3 (05:11→21:41)
[2021-08-12] MEDS: NITROGLYCERIN OINT 1GM/INCH UDPKT TD SCH ×3 (05:11→21:41)
[2021-08-12] MEDS: INSULIN LISPRO 100 UNITS/ML SUBCUT SCH ×3 (05:12→17:44)
[2021-08-12] MEDS: BLOOD SUGAR DIAGNOSTIC STRIP TEST SCH ×4 (05:12→23:52)
[2021-08-12 05:52] LABS: BASOPHILS % 0.3 % (0.0-2.0); EOSINOPHILS % 1.4 % (0.0-5.0); HEMATOCRIT. 24.5 % (36.0-48.0); HEMOGLOBIN. 7.9 g/dL (12.0-16.0); LYMPHOCYTES % 11.9 % (20.0-50.0); MEAN CORPUSCULAR HEMOGLOBIN 29.7 pg (28.0-32.0); MEAN CORPUSCULAR VOLUME 91.8 fL (81.0-99.0); MEAN PLATELET VOLUME 10.3 fl (7.4-10.4); MONOCYTES % 6.7 % (2.0-8.0); NEUTROPHILS % 79.7 % (40.0-76.0); PLATELET 237 x1000/uL (130-400); RED BLOOD CELL COUNT 2.67 mill/uL (4.2-5.4); RED CELL DISTRIBUTION WIDTH 16.4 % (11.6-14.6)
[2021-08-12] MEDS: DOCUSATE SODIUM SUGAR FREE 100MG/10ML UDC NG SCH ×2 (07:58→16:06)
[2021-08-12] MEDS: ASCORBIC ACID 500 MG TABLET PO SCH ×2 (07:58→21:42)
[2021-08-12] MEDS: FUROSEMIDE 20MG/2ML VIAL IVP SCH (07:58)
[2021-08-12] MEDS: ASPIRIN 325MG EC TABLET PO SCH (07:58)
[2021-08-12] MEDS: CHOLECALCIFEROL (D3) 1000 UNIT TABLET PO SCH (07:58)
[2021-08-12] MEDS: ZINC SULFATE 220 MG ( 50 ) CAPSULE PO SCH (07:58)
[2021-08-12] MEDS: LISINOPRIL 20MG TABLET PO SCH ×2 (07:58→21:42)
[2021-08-12 09:12] LABS: BG BASE EXCESS 5.6 mmol/L (-2.0-2.0); BG CARBOXYHEMOGLOBIN 0.2 % (0.5-1.5); BG FRACTION INSPIRED OXYGEN 40; BG HCO3 ACT 29.4 mmol/L (22.0-26.0); BG METHEMOGLOBIN 0.3 % (0.0-1.5); BG OXYHEMOGLOBIN 98.5 % (94.0-97.0); BG PCO2 39.4 mmHg (35.0-45.0); BG PO2 167.8 mmHg (75.0-100.0); BG SAMPLE SITE RIGHT RADIAL; BG TOTAL HEMOGLOBIN 8.7 g/dL (12.0-18.0); BG VENT MODE VENT - AC
[2021-08-12] MEDS ORDERED: SODIUM CHLORIDE 0.9% 500 ML IV ONE (09:15)
[2021-08-12] MEDS: INSULIN GLARGINE UD 100 UNITS/ML SYR SUBCUT SCH (11:17)
[2021-08-12] MEDS: AMLODIPINE 10MG TABLET PO SCH (12:57)
[2021-08-12] MEDS: SODIUM CHLORIDE 0.9% 1,000 ML IV SCH ×2 (19:35→21:42)
[2021-08-12] MEDS: LINEZOLID 600MG TABLET PO SCH (21:42)
[2021-08-12] MEDS: FAMOTIDINE 20MG TABLET PO SCH (21:42)
[2021-08-12] MEDS: ONDANSETRON HCL 4MG/2ML INJ IV PRN (22:41)
[2021-08-13] VITALS (52 sets, daily range): BP systolic 110–179; BP diastolic 45–75
[2021-08-13] MEDS: ALBUTEROL (0.083%) 2.5MG/3ML NEB HHN SCH ×5 (00:18→21:06)
[2021-08-13] MEDS: MEROPENEM 1000MG in NORMAL SALINE 100ML IV SCH ×2 (04:07→18:27)
[2021-08-13] MEDS: ONDANSETRON HCL 4MG/2ML INJ IV PRN ×2 (04:07→21:45)
[2021-08-13] MEDS: BLOOD SUGAR DIAGNOSTIC STRIP TEST SCH ×3 (05:31→18:10)
[2021-08-13] MEDS: INSULIN LISPRO 100 UNITS/ML SUBCUT SCH ×4 (05:32→18:00)
[2021-08-13 05:47] LABS: BASOPHILS % 0.4 % (0.0-2.0); EOSINOPHILS % 1.4 % (0.0-5.0); HEMATOCRIT. 24.9 % (36.0-48.0); HEMOGLOBIN. 8.1 g/dL (12.0-16.0); LYMPHOCYTES % 10.5 % (20.0-50.0); MEAN CORPUSCULAR HEMOGLOBIN 29.8 pg (28.0-32.0); MEAN CORPUSCULAR VOLUME 91.5 fL (81.0-99.0); MONOCYTES % 7.3 % (2.0-8.0); NEUTROPHILS % 80.4 % (40.0-76.0); RED BLOOD CELL COUNT 2.72 mill/uL (4.2-5.4); RED CELL DISTRIBUTION WIDTH 16.5 % (11.6-14.6)
[2021-08-13] MEDS: VALPROATE SODIUM 250MG/5ML UDC PO SCH ×3 (06:23→21:08)
[2021-08-13] MEDS: NITROGLYCERIN OINT 1GM/INCH UDPKT TD SCH ×3 (06:23→21:09)
[2021-08-13 07:06] LABS: MEAN PLATELET VOLUME 10.5 fl (7.4-10.4); PLATELET 292 x1000/uL (130-400)
[2021-08-13 08:27] LABS: BG BASE EXCESS 4.8 mmol/L (-2.0-2.0); BG CARBOXYHEMOGLOBIN 0.2 % (0.5-1.5); BG DEOXYHEMOGLOBIN 1.2 % (0.0-5.0); BG HCO3 ACT 28.1 mmol/L (22.0-26.0); BG METHEMOGLOBIN 0.2 % (0.0-1.5); BG OXYGEN SATURATION 98.8 % (92.0-98.5); BG OXYHEMOGLOBIN 98.4 % (94.0-97.0); BG PCO2 35.9 mmHg (35.0-45.0); BG PH 7.511 (7.350-7.450); BG PO2 134.4 mmHg (75.0-100.0); BG SAMPLE SITE RIGHT RADIAL; BG TOTAL HEMOGLOBIN 8.7 g/dL (12.0-18.0); BG VENT MODE VENT - AC
[2021-08-13] MEDS: FUROSEMIDE 20MG/2ML VIAL IVP SCH (08:33)
[2021-08-13] MEDS: DOCUSATE SODIUM SUGAR FREE 100MG/10ML UDC NG SCH ×2 (08:33→18:27)
[2021-08-13] MEDS: ASPIRIN 325MG EC TABLET PO SCH (08:34)
[2021-08-13] MEDS: ASCORBIC ACID 500 MG TABLET PO SCH ×2 (08:34→21:08)
[2021-08-13] MEDS: ZINC SULFATE 220 MG ( 50 ) CAPSULE PO SCH (08:34)
[2021-08-13] MEDS: CHOLECALCIFEROL (D3) 1000 UNIT TABLET PO SCH (08:35)
[2021-08-13] MEDS: LISINOPRIL 20MG TABLET PO SCH ×2 (08:35→21:09)
[2021-08-13] MEDS: AMLODIPINE 10MG TABLET PO SCH (08:35)
[2021-08-13] MEDS: LINEZOLID 600MG TABLET PO SCH ×2 (09:00→21:08)
[2021-08-13] MEDS: INSULIN GLARGINE UD 100 UNITS/ML SYR SUBCUT SCH (10:19)
[2021-08-13] MEDS: PANTOPRAZOLE SODIUM 40 MG/VIAL IV SCH (11:14)
[2021-08-13] MEDS: METOCLOPRAMIDE HCL 10MG/2ML VIAL IV SCH ×2 (11:14→18:27)
[2021-08-13] MEDS: SODIUM CHLORIDE 0.9% 1,000 ML IV SCH (11:25)
[2021-08-13] MEDS: CLONIDINE 0.1MG TABLET PO PRN (18:27)
[2021-08-13] MEDS: FAMOTIDINE 20MG TABLET PO SCH (21:09)
[2021-08-13] MEDS: HYDRALAZINE 20MG/ML VIAL IV PRN (22:43)
[2021-08-14] VITALS (49 sets, daily range): BP systolic 93–147; BP diastolic 37–69
[2021-08-14] MEDS: ALBUTEROL (0.083%) 2.5MG/3ML NEB HHN SCH ×6 (00:24→20:48)
[2021-08-14] MEDS: SODIUM CHLORIDE 0.9% 1,000 ML IV SCH ×2 (00:27→10:56)
[2021-08-14] MEDS: METOCLOPRAMIDE HCL 10MG/2ML VIAL IV SCH ×5 (00:27→23:21)
[2021-08-14] MEDS: MEROPENEM 1000MG in NORMAL SALINE 100ML IV SCH ×2 (04:15→15:40)
[2021-08-14] MEDS: INSULIN LISPRO 100 UNITS/ML SUBCUT SCH ×5 (06:00→23:10)
[2021-08-14] MEDS: NITROGLYCERIN OINT 1GM/INCH UDPKT TD SCH ×3 (06:00→21:08)
[2021-08-14] MEDS: BLOOD SUGAR DIAGNOSTIC STRIP TEST SCH ×5 (06:00→23:10)
[2021-08-14 06:12] LABS: BASOPHILS % 0.4 % (0.0-2.0); EOSINOPHILS % 3.4 % (0.0-5.0); HEMATOCRIT. 26.9 % (36.0-48.0); HEMOGLOBIN. 8.8 g/dL (12.0-16.0); LYMPHOCYTES % 14.4 % (20.0-50.0); MEAN CORPUSCULAR HEMOGLOBIN 30.3 pg (28.0-32.0); MEAN CORPUSCULAR VOLUME 92.8 fL (81.0-99.0); MEAN PLATELET VOLUME 9.7 fl (7.4-10.4); MONOCYTES % 7.2 % (2.0-8.0); NEUTROPHILS % 74.6 % (40.0-76.0); PLATELET 303 x1000/uL (130-400); RED CELL DISTRIBUTION WIDTH 16.6 % (11.6-14.6)
[2021-08-14] MEDS: ONDANSETRON HCL 4MG/2ML INJ IV PRN (06:18)
[2021-08-14] MEDS: VALPROATE SODIUM 250MG/5ML UDC PO SCH ×3 (06:18→21:08)
[2021-08-14 08:33] LABS: BG BASE EXCESS 1.1 mmol/L (-2.0-2.0); BG CARBOXYHEMOGLOBIN 0.3 % (0.5-1.5); BG DEOXYHEMOGLOBIN 1.2 % (0.0-5.0); BG HCO3 ACT 24.8 mmol/L (22.0-26.0); BG METHEMOGLOBIN 0.2 % (0.0-1.5); BG OXYGEN SATURATION 98.8 % (92.0-98.5); BG OXYHEMOGLOBIN 98.3 % (94.0-97.0); BG PCO2 35.5 mmHg (35.0-45.0); BG PH 7.462 (7.350-7.450); BG PO2 178.2 mmHg (75.0-100.0); BG SAMPLE SITE RIGHT RADIAL; BG TOTAL HEMOGLOBIN 8.7 g/dL (12.0-18.0); BG VENT MODE VENT - AC
[2021-08-14] MEDS: LINEZOLID 600MG TABLET PO SCH (09:00)
[2021-08-14] MEDS: ASPIRIN 325MG EC TABLET PO SCH (09:00)
[2021-08-14] MEDS: ASCORBIC ACID 500 MG TABLET PO SCH ×2 (09:00→21:08)
[2021-08-14] MEDS: LISINOPRIL 20MG TABLET PO SCH ×2 (09:00→21:08)
[2021-08-14] MEDS: CHOLECALCIFEROL (D3) 1000 UNIT TABLET PO SCH (09:00)
[2021-08-14] MEDS: ZINC SULFATE 220 MG ( 50 ) CAPSULE PO SCH (09:00)
[2021-08-14] MEDS: AMLODIPINE 10MG TABLET PO SCH (09:00)
[2021-08-14] MEDS: DOCUSATE SODIUM SUGAR FREE 100MG/10ML UDC NG SCH ×2 (09:00→17:22)
[2021-08-14] MEDS: PANTOPRAZOLE SODIUM 40 MG/VIAL IV SCH (10:56)
[2021-08-14] MEDS: FUROSEMIDE 20MG/2ML VIAL IVP SCH (10:56)
[2021-08-14] MEDS: INSULIN GLARGINE UD 100 UNITS/ML SYR SUBCUT SCH (10:59)
[2021-08-14] MEDS: LINEZOLID 600 MG PREMIX 300 ML IV SCH (13:13)
[2021-08-14 16:22] LABS: BG BASE EXCESS 3.9 mmol/L (-2.0-2.0); BG CARBOXYHEMOGLOBIN 0.3 % (0.5-1.5); BG DEOXYHEMOGLOBIN 1.6 % (0.0-5.0); BG FRACTION INSPIRED OXYGEN 40; BG HCO3 ACT 29.1 mmol/L (22.0-26.0); BG METHEMOGLOBIN 0.2 % (0.0-1.5); BG OXYGEN SATURATION 98.4 % (92.0-98.5); BG OXYHEMOGLOBIN 97.9 % (94.0-97.0); BG SAMPLE SITE RIGHT RADIAL; BG TOTAL HEMOGLOBIN 9.5 g/dL (12.0-18.0); BG TOTAL RESPIRATORY RATE 10 b/min; BG VENT MODE VENT - SIMV
[2021-08-14] MEDS: FAMOTIDINE 20MG TABLET PO SCH (21:10)
[2021-08-15] VITALS (48 sets, daily range): BP systolic 83–155; BP diastolic 31–69
[2021-08-15] MEDS: LINEZOLID 600 MG PREMIX 300 ML IV SCH ×3 (00:15→21:54)
[2021-08-15] MEDS: ALBUTEROL (0.083%) 2.5MG/3ML NEB HHN SCH ×5 (00:42→21:31)
[2021-08-15 05:34] LABS: BASOPHILS % 0.2 % (0.0-2.0); EOSINOPHILS % 1.3 % (0.0-5.0); HEMATOCRIT. 25.3 % (36.0-48.0); HEMOGLOBIN. 8.4 g/dL (12.0-16.0); LYMPHOCYTES % 17.7 % (20.0-50.0); MEAN CORPUSCULAR HEMOGLOBIN 30.4 pg (28.0-32.0); MEAN CORPUSCULAR VOLUME 92.3 fL (81.0-99.0); MEAN PLATELET VOLUME 8.9 fl (7.4-10.4); MONOCYTES % 9.4 % (2.0-8.0); NEUTROPHILS % 71.4 % (40.0-76.0); PLATELET 292 x1000/uL (130-400); RED BLOOD CELL COUNT 2.74 mill/uL (4.2-5.4); RED CELL DISTRIBUTION WIDTH 16.3 % (11.6-14.6)
[2021-08-15] MEDS: MEROPENEM 1000MG in NORMAL SALINE 100ML IV SCH ×2 (05:39→15:52)
[2021-08-15] MEDS: BLOOD SUGAR DIAGNOSTIC STRIP TEST SCH ×3 (05:39→18:04)
[2021-08-15] MEDS: VALPROATE SODIUM 250MG/5ML UDC PO SCH ×3 (05:39→21:53)
[2021-08-15] MEDS: INSULIN LISPRO 100 UNITS/ML SUBCUT SCH ×3 (05:46→18:00)
[2021-08-15] MEDS: NITROGLYCERIN OINT 1GM/INCH UDPKT TD SCH ×3 (05:46→21:53)
[2021-08-15] MEDS: METOCLOPRAMIDE HCL 10MG/2ML VIAL IV SCH ×3 (05:46→18:06)
[2021-08-15] MEDS: SODIUM CHLORIDE 0.9% 1,000 ML IV SCH ×2 (06:28→09:36)
[2021-08-15] MEDS: PANTOPRAZOLE SODIUM 40 MG/VIAL IV SCH (08:20)
[2021-08-15] MEDS: DOCUSATE SODIUM SUGAR FREE 100MG/10ML UDC NG SCH ×2 (08:21→18:05)
[2021-08-15] MEDS: ASPIRIN 325MG EC TABLET PO SCH (08:21)
[2021-08-15] MEDS: FUROSEMIDE 20MG/2ML VIAL IVP SCH (08:21)
[2021-08-15] MEDS: LISINOPRIL 20MG TABLET PO SCH ×2 (08:21→21:53)
[2021-08-15] MEDS: ASCORBIC ACID 500 MG TABLET PO SCH ×2 (08:21→21:53)
[2021-08-15] MEDS: CHOLECALCIFEROL (D3) 1000 UNIT TABLET PO SCH (08:21)
[2021-08-15] MEDS: AMLODIPINE 10MG TABLET PO SCH (08:22)
[2021-08-15] MEDS: ZINC SULFATE 220 MG ( 50 ) CAPSULE PO SCH (08:23)
[2021-08-15 09:13] LABS: BG BASE EXCESS 2.9 mmol/L (-2.0-2.0); BG CARBOXYHEMOGLOBIN 0.3 % (0.5-1.5); BG DEOXYHEMOGLOBIN 1.7 % (0.0-5.0); BG FRACTION INSPIRED OXYGEN 35; BG HCO3 ACT 28.7 mmol/L (22.0-26.0); BG METHEMOGLOBIN 0.3 % (0.0-1.5); BG OXYGEN SATURATION 98.3 % (92.0-98.5); BG OXYHEMOGLOBIN 97.7 % (94.0-97.0); BG PCO2 50.5 mmHg (35.0-45.0); BG PH 7.372 (7.350-7.450); BG PO2 123.8 mmHg (75.0-100.0); BG SAMPLE SITE RIGHT RADIAL; BG TOTAL HEMOGLOBIN 8.3 g/dL (12.0-18.0); BG VENT MODE VENT - SIMV
[2021-08-15] MEDS: INSULIN GLARGINE UD 100 UNITS/ML SYR SUBCUT SCH (09:37)
[2021-08-15] MEDS: ONDANSETRON HCL 4MG/2ML INJ IV PRN (15:08)
[2021-08-15] MEDS: SODIUM CHLORIDE 0.45% 1,000 ML IV SCH (18:07)
[2021-08-15] MEDS: FAMOTIDINE 20MG TABLET PO SCH (21:53)
[2021-08-16] VITALS (48 sets, daily range): BP systolic 118–165; BP diastolic 47–66
[2021-08-16] MEDS: ALBUTEROL (0.083%) 2.5MG/3ML NEB HHN SCH ×6 (00:21→21:09)
[2021-08-16] MEDS: INSULIN LISPRO 100 UNITS/ML SUBCUT SCH ×4 (00:53→18:51)
[2021-08-16] MEDS: METOCLOPRAMIDE HCL 10MG/2ML VIAL IV SCH ×4 (05:27→17:33)
[2021-08-16] MEDS: VALPROATE SODIUM 250MG/5ML UDC PO SCH ×3 (05:27→21:25)
[2021-08-16] MEDS: BLOOD SUGAR DIAGNOSTIC STRIP TEST SCH ×4 (05:28→18:50)
[2021-08-16] MEDS: NITROGLYCERIN OINT 1GM/INCH UDPKT TD SCH ×3 (05:28→21:26)
[2021-08-16 05:50] LABS: CHLORIDE 113 mEq/L (98-107)
[2021-08-16] MEDS: ASPIRIN 325MG EC TABLET PO SCH (08:12)
[2021-08-16] MEDS: FUROSEMIDE 20MG/2ML VIAL IVP SCH (08:12)
[2021-08-16] MEDS: LISINOPRIL 20MG TABLET PO SCH ×2 (08:12→21:26)
[2021-08-16] MEDS: DOCUSATE SODIUM SUGAR FREE 100MG/10ML UDC NG SCH ×2 (08:12→17:33)
[2021-08-16] MEDS: CHOLECALCIFEROL (D3) 1000 UNIT TABLET PO SCH (08:12)
[2021-08-16] MEDS: ASCORBIC ACID 500 MG TABLET PO SCH ×2 (08:12→21:26)
[2021-08-16] MEDS: PANTOPRAZOLE SODIUM 40 MG/VIAL IV SCH (08:12)
[2021-08-16] MEDS: SODIUM CHLORIDE 0.45% 1,000 ML IV SCH ×2 (08:12→21:27)
[2021-08-16] MEDS: ZINC SULFATE 220 MG ( 50 ) CAPSULE PO SCH (08:13)
[2021-08-16] MEDS: AMLODIPINE 10MG TABLET PO SCH (08:13)
[2021-08-16 08:52] LABS: BG BASE EXCESS 1.9 mmol/L (-2.0-2.0); BG CARBOXYHEMOGLOBIN 0.3 % (0.5-1.5); BG DEOXYHEMOGLOBIN 1.5 % (0.0-5.0); BG HCO3 ACT 27.2 mmol/L (22.0-26.0); BG METHEMOGLOBIN 0.3 % (0.0-1.5); BG OXYGEN SATURATION 98.5 % (92.0-98.5); BG OXYHEMOGLOBIN 97.9 % (94.0-97.0); BG PCO2 45.7 mmHg (35.0-45.0); BG PH 7.392 (7.350-7.450); BG SAMPLE SITE RIGHT RADIAL; BG TOTAL HEMOGLOBIN 8.9 g/dL (12.0-18.0); BG VENT MODE VENT - SIMV
[2021-08-16] MEDS: LINEZOLID 600 MG PREMIX 300 ML IV SCH ×2 (09:03→21:25)
[2021-08-16] MEDS: INSULIN GLARGINE UD 100 UNITS/ML SYR SUBCUT SCH (10:09)
[2021-08-16] MEDS: FAMOTIDINE 20MG TABLET PO SCH (21:26)
[2021-08-17] VITALS (47 sets, daily range): BP systolic 106–171; BP diastolic 38–100
[2021-08-17] MEDS: BLOOD SUGAR DIAGNOSTIC STRIP TEST SCH ×4 (00:26→18:00)
[2021-08-17] MEDS: INSULIN LISPRO 100 UNITS/ML SUBCUT SCH ×4 (00:27→18:00)
[2021-08-17] MEDS: METOCLOPRAMIDE HCL 10MG/2ML VIAL IV SCH ×5 (00:27→22:45)
[2021-08-17] MEDS: ALBUTEROL (0.083%) 2.5MG/3ML NEB HHN SCH ×6 (00:51→21:28)
[2021-08-17] MEDS: VALPROATE SODIUM 250MG/5ML UDC PO SCH ×3 (05:45→22:33)
[2021-08-17] MEDS: NITROGLYCERIN OINT 1GM/INCH UDPKT TD SCH ×3 (05:46→22:21)
[2021-08-17] MEDS: DOCUSATE SODIUM SUGAR FREE 100MG/10ML UDC NG SCH ×2 (09:08→18:15)
[2021-08-17] MEDS: ASPIRIN 325MG EC TABLET PO SCH (09:08)
[2021-08-17] MEDS: PANTOPRAZOLE SODIUM 40 MG/VIAL IV SCH (09:08)
[2021-08-17] MEDS: LISINOPRIL 20MG TABLET PO SCH ×2 (09:08→21:00)
[2021-08-17] MEDS: AMLODIPINE 10MG TABLET PO SCH (09:09)
[2021-08-17] MEDS: CHOLECALCIFEROL (D3) 1000 UNIT TABLET PO SCH (09:09)
[2021-08-17] MEDS: FUROSEMIDE 20MG/2ML VIAL IVP SCH (09:09)
[2021-08-17] MEDS: ASCORBIC ACID 500 MG TABLET PO SCH ×2 (09:09→21:00)
[2021-08-17] MEDS: LINEZOLID 600 MG PREMIX 300 ML IV SCH ×2 (09:10→22:20)
[2021-08-17] MEDS: ZINC SULFATE 220 MG ( 50 ) CAPSULE PO SCH (09:10)
[2021-08-17] MEDS: INSULIN GLARGINE UD 100 UNITS/ML SYR SUBCUT SCH (10:08)
[2021-08-17] MEDS: SODIUM CHLORIDE 0.45% 1,000 ML IV SCH (14:06)
[2021-08-17] MEDS: FAMOTIDINE 20MG TABLET PO SCH (22:21)
[2021-08-17] MEDS: ONDANSETRON HCL 4MG/2ML INJ IV PRN (22:22)
[2021-08-17] MEDS: GUAIFENESIN 200MG/10ML SUGAR FREE UDC PO PRN (22:22)
[2021-08-18] VITALS (30 sets, daily range): BP systolic 116–173; BP diastolic 51–81
[2021-08-18] MEDS: ALBUTEROL (0.083%) 2.5MG/3ML NEB HHN SCH ×6 (00:39→20:27)
[2021-08-18 05:30] LABS: BASOPHILS % 0.2 % (0.0-2.0); EOSINOPHILS % 2.4 % (0.0-5.0); HEMATOCRIT. 25.3 % (36.0-48.0); HEMOGLOBIN. 8.5 g/dL (12.0-16.0); LYMPHOCYTES % 13.3 % (20.0-50.0); MEAN CORPUSCULAR HEMOGLOBIN 30.7 pg (28.0-32.0); MEAN CORPUSCULAR VOLUME 91.8 fL (81.0-99.0); MEAN PLATELET VOLUME 8.3 fl (7.4-10.4); MONOCYTES % 7.9 % (2.0-8.0); NEUTROPHILS % 76.2 % (40.0-76.0); PLATELET 346 x1000/uL (130-400); RED BLOOD CELL COUNT 2.76 mill/uL (4.2-5.4); RED CELL DISTRIBUTION WIDTH 15.9 % (11.6-14.6)
[2021-08-18] MEDS: NITROGLYCERIN OINT 1GM/INCH UDPKT TD SCH ×3 (06:00→21:20)
[2021-08-18] MEDS: BLOOD SUGAR DIAGNOSTIC STRIP TEST SCH ×5 (06:00→23:38)
[2021-08-18] MEDS: METOCLOPRAMIDE HCL 10MG/2ML VIAL IV SCH ×3 (06:00→18:48)
[2021-08-18] MEDS: VALPROATE SODIUM 250MG/5ML UDC PO SCH ×3 (06:00→21:20)
[2021-08-18] MEDS: INSULIN LISPRO 100 UNITS/ML SUBCUT SCH ×5 (06:00→23:38)
[2021-08-18] MEDS: GUAIFENESIN 200MG/10ML SUGAR FREE UDC PO PRN (08:33)
[2021-08-18] MEDS: PANTOPRAZOLE SODIUM 40 MG/VIAL IV SCH (09:00)
[2021-08-18] MEDS: LINEZOLID 600 MG PREMIX 300 ML IV SCH ×2 (09:00→21:20)
[2021-08-18] MEDS: LISINOPRIL 20MG TABLET PO SCH ×2 (09:00→21:18)
[2021-08-18] MEDS: ASCORBIC ACID 500 MG TABLET PO SCH ×2 (09:00→21:18)
[2021-08-18] MEDS: CHOLECALCIFEROL (D3) 1000 UNIT TABLET PO SCH (09:00)
[2021-08-18] MEDS: ASPIRIN 325MG EC TABLET PO SCH (09:00)
[2021-08-18] MEDS: ZINC SULFATE 220 MG ( 50 ) CAPSULE PO SCH (09:00)
[2021-08-18] MEDS: AMLODIPINE 10MG TABLET PO SCH (09:00)
[2021-08-18] MEDS: DOCUSATE SODIUM SUGAR FREE 100MG/10ML UDC NG SCH ×2 (09:00→17:24)
[2021-08-18 09:54] LABS: BG BASE EXCESS 5.9 mmol/L (-2.0-2.0); BG CARBOXYHEMOGLOBIN 0.1 % (0.5-1.5); BG DEOXYHEMOGLOBIN 1.1 % (0.0-5.0); BG FRACTION INSPIRED OXYGEN 35; BG HCO3 ACT 29.5 mmol/L (22.0-26.0); BG METHEMOGLOBIN 0.2 % (0.0-1.5); BG OXYGEN SATURATION 98.9 % (92.0-98.5); BG OXYHEMOGLOBIN 98.6 % (94.0-97.0); BG PCO2 38.8 mmHg (35.0-45.0); BG PH 7.499 (7.350-7.450); BG PO2 149.4 mmHg (75.0-100.0); BG SAMPLE SITE RIGHT RADIAL; BG TOTAL HEMOGLOBIN 8.9 g/dL (12.0-18.0); BG VENT MODE VENT - AC
[2021-08-18] MEDS: HYDRALAZINE 20MG/ML VIAL IV PRN (16:31)
[2021-08-18] MEDS: SODIUM CHLORIDE 0.45% 1,000 ML IV SCH ×2 (17:00→22:37)
[2021-08-18] MEDS: INSULIN GLARGINE UD 100 UNITS/ML SYR SUBCUT SCH (17:28)
[2021-08-18] MEDS: FUROSEMIDE 20MG/2ML VIAL IVP SCH (17:29)
[2021-08-18] MEDS: FAMOTIDINE 20MG TABLET PO SCH (21:18)
[2021-08-19] VITALS (39 sets, daily range): BP systolic 35–171; BP diastolic 53–94
[2021-08-19] MEDS: ALBUTEROL (0.083%) 2.5MG/3ML NEB HHN SCH ×6 (00:07→20:18)
[2021-08-19] MEDS: NITROGLYCERIN OINT 1GM/INCH UDPKT TD SCH ×3 (05:09→22:35)
[2021-08-19] MEDS: METOCLOPRAMIDE HCL 10MG/2ML VIAL IV SCH ×4 (05:09→18:00)
[2021-08-19] MEDS: BLOOD SUGAR DIAGNOSTIC STRIP TEST SCH ×4 (05:09→23:41)
[2021-08-19] MEDS: INSULIN LISPRO 100 UNITS/ML SUBCUT SCH ×3 (05:38→18:00)
[2021-08-19] MEDS: PANTOPRAZOLE SODIUM 40 MG/VIAL IV SCH (09:46)
[2021-08-19] MEDS: SODIUM CHLORIDE 0.45% 1,000 ML IV SCH ×2 (09:46→22:33)
[2021-08-19] MEDS: LINEZOLID 600 MG PREMIX 300 ML IV SCH (09:46)
[2021-08-19] MEDS: FUROSEMIDE 20MG/2ML VIAL IVP SCH (09:46)
[2021-08-19] MEDS: CHOLECALCIFEROL (D3) 1000 UNIT TABLET PO SCH (09:47)
[2021-08-19] MEDS: ZINC SULFATE 220 MG ( 50 ) CAPSULE PO SCH (09:47)
[2021-08-19] MEDS: DOCUSATE SODIUM SUGAR FREE 100MG/10ML UDC NG SCH ×2 (09:47→17:00)
[2021-08-19] MEDS: INSULIN GLARGINE UD 100 UNITS/ML SYR SUBCUT SCH (09:48)
[2021-08-19] MEDS: ASPIRIN 325MG EC TABLET PO SCH (09:58)
[2021-08-19] MEDS: IPRATROPIUM/ALBUTEROL 0.5-3(2.5)MG/3ML NEB HHN PRN (16:21)
[2021-08-20] VITALS (36 sets, daily range): BP systolic 125–175; BP diastolic 46–93
[2021-08-20] MEDS: ALBUTEROL (0.083%) 2.5MG/3ML NEB HHN SCH ×6 (00:45→20:06)
[2021-08-20] MEDS: METOCLOPRAMIDE HCL 10MG/2ML VIAL IV SCH ×3 (05:04→12:24)
[2021-08-20] MEDS: NITROGLYCERIN OINT 1GM/INCH UDPKT TD SCH ×3 (05:05→21:18)
[2021-08-20] MEDS: BLOOD SUGAR DIAGNOSTIC STRIP TEST SCH ×3 (06:00→18:00)
[2021-08-20 09:50] LABS: BG BASE EXCESS 1.4 mmol/L (-2.0-2.0); BG CARBOXYHEMOGLOBIN 0.3 % (0.5-1.5); BG DEOXYHEMOGLOBIN 1.7 % (0.0-5.0); BG FRACTION INSPIRED OXYGEN 35; BG HCO3 ACT 25.9 mmol/L (22.0-26.0); BG METHEMOGLOBIN 0.3 % (0.0-1.5); BG OXYGEN SATURATION 98.3 % (92.0-98.5); BG OXYHEMOGLOBIN 97.7 % (94.0-97.0); BG PCO2 40.9 mmHg (35.0-45.0); BG PO2 120.4 mmHg (75.0-100.0); BG SAMPLE SITE RIGHT RADIAL; BG TOTAL HEMOGLOBIN 9.4 g/dL (12.0-18.0); BG VENT MODE VENT - AC
[2021-08-20] MEDS: INSULIN GLARGINE UD 100 UNITS/ML SYR SUBCUT SCH (10:53)
[2021-08-20] MEDS: FUROSEMIDE 20MG/2ML VIAL IVP SCH (10:53)
[2021-08-20] MEDS: SODIUM CHLORIDE 0.45% 1,000 ML IV SCH (10:55)
[2021-08-20] MEDS: DOCUSATE SODIUM SUGAR FREE 100MG/10ML UDC NG SCH ×2 (12:23→17:00)
[2021-08-20] MEDS: PANTOPRAZOLE SODIUM 40 MG/VIAL IV SCH (12:23)
[2021-08-20] MEDS: INSULIN LISPRO 100 UNITS/ML SUBCUT SCH ×2 (18:00)
[2021-08-20] MEDS: HYDRALAZINE 20MG/ML VIAL IV PRN (21:33)
[2021-08-21] VITALS (35 sets, daily range): BP systolic 104–186; BP diastolic 42–81
[2021-08-21] MEDS: ALBUTEROL (0.083%) 2.5MG/3ML NEB HHN SCH ×6 (00:16→21:45)
[2021-08-21] MEDS: BLOOD SUGAR DIAGNOSTIC STRIP TEST SCH ×5 (00:31→23:19)
[2021-08-21] MEDS: METOCLOPRAMIDE HCL 10MG/2ML VIAL IV SCH ×4 (00:34→18:00)
[2021-08-21] MEDS: SODIUM CHLORIDE 0.45% 1,000 ML IV SCH (02:26)
[2021-08-21 05:10] LABS: BASOPHILS % 0.3 % (0.0-2.0); EOSINOPHILS % 2.9 % (0.0-5.0); HEMATOCRIT. 26.8 % (36.0-48.0); HEMOGLOBIN. 8.8 g/dL (12.0-16.0); LYMPHOCYTES % 13.4 % (20.0-50.0); MEAN CORPUSCULAR HEMOGLOBIN 29.7 pg (28.0-32.0); MEAN CORPUSCULAR VOLUME 90.5 fL (81.0-99.0); MEAN PLATELET VOLUME 7.6 fl (7.4-10.4); MONOCYTES % 7.8 % (2.0-8.0); NEUTROPHILS % 75.6 % (40.0-76.0); PLATELET 403 x1000/uL (130-400); RED BLOOD CELL COUNT 2.96 mill/uL (4.2-5.4); RED CELL DISTRIBUTION WIDTH 15.7 % (11.6-14.6)
[2021-08-21 05:26] LABS: CHLORIDE 114 mEq/L (98-107)
[2021-08-21] MEDS: INSULIN LISPRO 100 UNITS/ML SUBCUT SCH ×5 (06:00→23:19)
[2021-08-21] MEDS: FUROSEMIDE 20MG/2ML VIAL IVP SCH ×2 (06:51→17:15)
[2021-08-21] MEDS: NITROGLYCERIN OINT 1GM/INCH UDPKT TD SCH ×3 (06:51→22:28)
[2021-08-21] MEDS: PANTOPRAZOLE SODIUM 40 MG/VIAL IV SCH (08:22)
[2021-08-21] MEDS: DOCUSATE SODIUM SUGAR FREE 100MG/10ML UDC NG SCH ×2 (09:00→17:00)
[2021-08-21] MEDS: INSULIN GLARGINE UD 100 UNITS/ML SYR SUBCUT SCH (10:52)
[2021-08-21] MEDS ORDERED: POTASSIUM CHLORIDE 20MEQ/PACKET PO NR (11:00)
[2021-08-21] MEDS: HYDRALAZINE 20MG/ML VIAL IV PRN (12:15)
[2021-08-22] VITALS (34 sets, daily range): BP systolic 124–178; BP diastolic 55–80
[2021-08-22] MEDS: METOCLOPRAMIDE HCL 10MG/2ML VIAL IV SCH ×5 (00:12→23:34)
[2021-08-22] MEDS: ALBUTEROL (0.083%) 2.5MG/3ML NEB HHN SCH ×6 (00:17→20:51)
[2021-08-22 06:00] LABS: BASOPHILS % 0.5 % (0.0-2.0); EOSINOPHILS % 2.2 % (0.0-5.0); HEMATOCRIT. 25.4 % (36.0-48.0); HEMOGLOBIN. 8.5 g/dL (12.0-16.0); LYMPHOCYTES % 19.2 % (20.0-50.0); MEAN CORPUSCULAR HEMOGLOBIN 30.2 pg (28.0-32.0); MEAN CORPUSCULAR VOLUME 90.1 fL (81.0-99.0); MEAN PLATELET VOLUME 7.9 fl (7.4-10.4); MONOCYTES % 9.7 % (2.0-8.0); NEUTROPHILS % 68.4 % (40.0-76.0); PLATELET 420 x1000/uL (130-400); RED BLOOD CELL COUNT 2.82 mill/uL (4.2-5.4); RED CELL DISTRIBUTION WIDTH 16.1 % (11.6-14.6)
[2021-08-22] MEDS: INSULIN LISPRO 100 UNITS/ML SUBCUT SCH ×4 (06:00→23:53)
[2021-08-22 06:38] LABS: CHLORIDE 115 mEq/L (98-107)
[2021-08-22] MEDS: BLOOD SUGAR DIAGNOSTIC STRIP TEST SCH ×4 (06:49→23:35)
[2021-08-22] MEDS: NITROGLYCERIN OINT 1GM/INCH UDPKT TD SCH ×3 (06:58→21:59)
[2021-08-22] MEDS: FUROSEMIDE 20MG/2ML VIAL IVP SCH ×2 (06:58→17:15)
[2021-08-22] MEDS ORDERED: POTASSIUM CHLORIDE 20MEQ/PACKET PO NR (08:30)
[2021-08-22] MEDS: PANTOPRAZOLE SODIUM 40 MG/VIAL IV SCH (09:00)
[2021-08-22] MEDS: DOCUSATE SODIUM SUGAR FREE 100MG/10ML UDC NG SCH ×2 (09:00→17:06)
[2021-08-22 10:00] LABS: BG BASE EXCESS 1.9 mmol/L (-2.0-2.0); BG CARBOXYHEMOGLOBIN 0.2 % (0.5-1.5); BG FRACTION INSPIRED OXYGEN 35; BG HCO3 ACT 24.5 mmol/L (22.0-26.0); BG METHEMOGLOBIN 0.2 % (0.0-1.5); BG OXYHEMOGLOBIN 98.6 % (94.0-97.0); BG PCO2 30.7 mmHg (35.0-45.0); BG PO2 254.4 mmHg (75.0-100.0); BG TOTAL HEMOGLOBIN 9.1 g/dL (12.0-18.0); BG VENT MODE VENT - AC
[2021-08-22] MEDS: INSULIN GLARGINE UD 100 UNITS/ML SYR SUBCUT SCH (10:00)
[2021-08-23] VITALS (48 sets, daily range): BP systolic 134–190; BP diastolic 46–76
[2021-08-23] MEDS: ALBUTEROL (0.083%) 2.5MG/3ML NEB HHN SCH ×6 (00:41→19:52)
[2021-08-23] MEDS: NITROGLYCERIN OINT 1GM/INCH UDPKT TD SCH ×3 (05:37→21:38)
[2021-08-23] MEDS: METOCLOPRAMIDE HCL 10MG/2ML VIAL IV SCH ×3 (05:37→17:00)
[2021-08-23] MEDS: BLOOD SUGAR DIAGNOSTIC STRIP TEST SCH (05:37)
[2021-08-23] MEDS: INSULIN LISPRO 100 UNITS/ML SUBCUT SCH ×3 (06:00→18:57)
[2021-08-23 06:04] LABS: CHLORIDE 116 mEq/L (98-107)
[2021-08-23] MEDS: FUROSEMIDE 20MG/2ML VIAL IVP SCH (08:02)
[2021-08-23] MEDS: PANTOPRAZOLE SODIUM 40 MG/VIAL IV SCH (08:02)
[2021-08-23] MEDS: DOCUSATE SODIUM SUGAR FREE 100MG/10ML UDC NG SCH ×2 (08:02→16:47)
[2021-08-23] MEDS ORDERED: BISACODYL 10MG SUPP PR NR (09:30)
[2021-08-23] MEDS: INSULIN GLARGINE UD 100 UNITS/ML SYR SUBCUT SCH (10:11)
[2021-08-23] MEDS: AMLODIPINE 5MG TABLET PO SCH (21:01)
[2021-08-24] VITALS (33 sets, daily range): BP systolic 65–182; BP diastolic 35–75
[2021-08-24] MEDS: ALBUTEROL (0.083%) 2.5MG/3ML NEB HHN SCH ×5 (00:26→15:18)
[2021-08-24] MEDS: METOCLOPRAMIDE HCL 10MG/2ML VIAL IV SCH ×3 (00:31→12:32)
[2021-08-24] MEDS: INSULIN LISPRO 100 UNITS/ML SUBCUT SCH ×3 (05:52→12:00)
[2021-08-24 06:08] LABS: CHLORIDE 118 mEq/L (98-107)
[2021-08-24 06:10] LABS: BASOPHILS % 0.5 % (0.0-2.0); EOSINOPHILS % 2.4 % (0.0-5.0); HEMATOCRIT. 26.3 % (36.0-48.0); HEMOGLOBIN. 8.5 g/dL (12.0-16.0); LYMPHOCYTES % 14.7 % (20.0-50.0); MEAN CORPUSCULAR HEMOGLOBIN 29.6 pg (28.0-32.0); MEAN PLATELET VOLUME 8.2 fl (7.4-10.4); MONOCYTES % 7.9 % (2.0-8.0); NEUTROPHILS % 74.5 % (40.0-76.0); PLATELET 444 x1000/uL (130-400); RED BLOOD CELL COUNT 2.89 mill/uL (4.2-5.4); RED CELL DISTRIBUTION WIDTH 15.9 % (11.6-14.6)
[2021-08-24] MEDS: AMLODIPINE 5MG TABLET PO SCH (08:37)
[2021-08-24] MEDS: PANTOPRAZOLE SODIUM 40 MG/VIAL IV SCH (08:37)
[2021-08-24] MEDS: DOCUSATE SODIUM SUGAR FREE 100MG/10ML UDC NG SCH (08:37)
[2021-08-24] MEDS ORDERED: FUROSEMIDE 20MG/2ML VIAL IVP SCH (09:00)
[2021-08-24] MEDS: INSULIN GLARGINE UD 100 UNITS/ML SYR SUBCUT SCH (09:56)
[2021-08-24] MEDS ORDERED: MORPHINE SULFATE 250 MG in DEXT 5% WATER 225 ML IV PRN (11:00)
== END 2021-08-24 20:00 | DRG 870 ==
LOC: ER 05:01 → EDBEDREQ 11:50 → ENRESERV 17:06 → 8WST 19:25 → MICUNO 07-26 06:26 → 3WST 07-31 23:45 → MICUNO 08-06 01:54
PROVIDERS: ADMIT Internal Medicine; ATTEND Internal Medicine
PROC: 05HY33Z Insertion of Infusion Device into Upper Vein, Percutaneous Approach (ICD-10-PCS; 2021-07-26)
PROC: B54MZZA Ultrasonography of Right Upper Extremity Veins, Guidance (ICD-10-PCS; 2021-07-26)
PROC: 0BH17EZ Insertion of Endotracheal Airway into Trachea, Via Natural or Artificial Opening (ICD-10-PCS; 2021-07-26)
PROC: 5A1945Z Respiratory Ventilation, 24-96 Consecutive Hours (ICD-10-PCS; 2021-07-26)
PROC: 5A0935A Assistance with Respiratory Ventilation, Less than 24 Consecutive Hours, High Flow/Velocity Cannula (ICD-10-PCS; 2021-07-29)
PROC: 5A09357 Assistance with Respiratory Ventilation, Less than 24 Consecutive Hours, Continuous Positive Airway Pressure (ICD-10-PCS; 2021-07-30)
PROC: 4A10X4Z Monitoring of Central Nervous Electrical Activity, External Approach (ICD-10-PCS; 2021-08-01)
PROC: 5A09357 Assistance with Respiratory Ventilation, Less than 24 Consecutive Hours, Continuous Positive Airway Pressure (ICD-10-PCS; 2021-08-02)
PROC: 5A09457 Assistance with Respiratory Ventilation, 24-96 Consecutive Hours, Continuous Positive Airway Pressure (ICD-10-PCS; 2021-08-04)
PROC: 5A1955Z Respiratory Ventilation, Greater than 96 Consecutive Hours (ICD-10-PCS; principal; 2021-08-06)
PROC: 5A12012 Performance of Cardiac Output, Single, Manual (ICD-10-PCS; 2021-08-06)
PROC: 0BH17EZ Insertion of Endotracheal Airway into Trachea, Via Natural or Artificial Opening (ICD-10-PCS; 2021-08-06)
PROC: 4A10X4Z Monitoring of Central Nervous Electrical Activity, External Approach (ICD-10-PCS; 2021-08-08)
PROC: 02HV33Z Insertion of Infusion Device into Superior Vena Cava, Percutaneous Approach (ICD-10-PCS; 2021-08-18)
PROC: 30233N1 Transfusion of Nonautologous Red Blood Cells into Peripheral Vein, Percutaneous Approach (ICD-10-PCS; 2021-08-18)
DX: A41.51 Sepsis due to Escherichia coli [E. coli] (principal); J96.01 Acute respiratory failure with hypoxia; G92.8 Other toxic encephalopathy; E43 Unspecified severe protein-calorie malnutrition; J69.0 Pneumonitis due to inhalation of food and vomit; R65.21 Severe sepsis with septic shock; N17.0 Acute kidney failure with tubular necrosis; N18.6 End stage renal disease; I50.32 Chronic diastolic (congestive) heart failure; I16.1 Hypertensive emergency; D62 Acute posthemorrhagic anemia; E87.1 Hypo-osmolality and hyponatremia; Z68.43 Body mass index [BMI] 50.0-59.9, adult; E87.0 Hyperosmolality and hypernatremia; N13.6 Pyonephrosis; Z16.21 Resistance to vancomycin; Z99.11 Dependence on respirator [ventilator] status; K92.2 Gastrointestinal hemorrhage, unspecified; I13.2 Hypertensive heart and chronic kidney disease with heart failure and with stage 5 chronic kidney disease, or end stage renal disease; D63.8 Anemia in other chronic diseases classified elsewhere; N18.9 Chronic kidney disease, unspecified; I27.20 Pulmonary hypertension, unspecified; G40.409 Other generalized epilepsy and epileptic syndromes, not intractable, without status epilepticus; D52.9 Folate deficiency anemia, unspecified; E87.5 Hyperkalemia; E66.01 Morbid (severe) obesity due to excess calories; R13.12 Dysphagia, oropharyngeal phase; I25.10 Atherosclerotic heart disease of native coronary artery without angina pectoris; S80.11XA Contusion of right lower leg, initial encounter; X58.XXXA Exposure to other specified factors, initial encounter; S80.12XA Contusion of left lower leg, initial encounter; Z20.822 Contact with and (suspected) exposure to COVID-19; Z66 Do not resuscitate; E11.22 Type 2 diabetes mellitus with diabetic chronic kidney disease; Z79.4 Long term (current) use of insulin; Z79.899 Other long term (current) drug therapy; I25.2 Old myocardial infarction; Y93.89 Activity, other specified; Y92.89 Other specified places as the place of occurrence of the external cause; Y99.8 Other external cause status; Z86.73 Personal history of transient ischemic attack (TIA), and cerebral infarction without residual deficits; Z86.74 Personal history of sudden cardiac arrest; Z89.511 Acquired absence of right leg below knee; Z99.2 Dependence on renal dialysis
CPT/HCPCS: 31500; 36415; 36600; 70551; 71045; 74018; 76700; 76881; 76937; 80048; 80053; 80061; 80076; 80156; 80165; 80184; 80185; 80305; 80320; 81003; 82140; 82375; 82542; 82550; 82553; 82607; 82728; 82746; 82805; 82962; 83036; 83540; 83550; 83605; 83615; 83735; 83880; 84100; 84145; 84439; 84443; 84478; 84484; 85014; 85018; 85025; 85049; 85379; 85384; 86850; 86900; 86920; 87070; 87077; 87186; 87426; 92610; 92950; 93005; 93970; 94002; 94003; 94640; 94660; 94667; 95816; 97161; 97162; 97164; 99285; A6261; C1725; C1893; C9113; J0330; J0360; J0696; J1165; J1650; J1815; J1940; J1953; J1956; J2020; J2060; J2185; J2270; J2405; J2704; J2765; J2920; J2930; J3010; J3490; J7030; J7040; J7042; J7050; J7060; J7608; P9016; A4315; G0480